=== PATIENT | male | born 1945 | race Caucasian/White ===

== ENCOUNTER 2020-06-10 22:56 | Observation (INO) | payer BC, MEDICARE ==
[2020-06-10] MEDS ORDERED: Sodium Chloride 0.9% 1000 ML 1,000 ML IV SCH (23:15)
--- NOTE | 2020-06-10 23:19 | ERPHSYRPT ---
- History of Present Illness Time Seen by Provider: 06/10/20 23:15 Historian: patient Exam Limitations: no limitations Physician History: Pt is a 75-year-old male who on the of this April or 5 days ago underwent repair of multiple hernias including 2 inguinal hernias right and left a ventral hernia midline and a ventral hernia to the left. He did well until Saturday when he ate some [place] food since that time he has had multiple loose stools no food for 2 days, complains of generalized abdominal pain and bloating especially in the epigastric area he has some rebound tenderness and that when he walks or rides he does note his pain increased with bumps fever sweats or chills. Timing/Duration: day(s) (3) Activities at Onset: none Quality: cramping, stabbing Abdominal Pain Onset Location: epigastric, generalized abdomen Pain Radiation: epigastric Severity of Pain-Max: moderate Severity of Pain-Current: moderate Associated Symptoms: heartburn, nausea, No vomiting Previous symptoms: no prior history Allergies/Adverse Reactions: No Known Drug Allergies Allergy (Verified 06/10/20 23:02) Hx Tetanus, Diphtheria Vaccination/Date Given: No (PT UNSURE) - Review of Systems Constitutional: No Fever, No Chills Eyes: No Symptoms Ears, Nose, & Throat: No Symptoms Respiratory: No Cough, No Dyspnea Cardiac: No Chest Pain, No Edema, No Syncope Abdominal/Gastrointestinal: Abdominal Pain, Nausea, Diarrhea, Appetite Changes, No Vomiting Genitourinary Symptoms: No Dysuria Musculoskeletal: No Back Pain, No Neck Pain Skin: No Rash Neurological: No Dizziness, No Focal Weakness, No Sensory Changes Psychological: No Symptoms Endocrine: No Symptoms All Other Systems: Reviewed and Negative - Past Medical History Pertinent Past Medical History: Yes Neurological History: No Pertinent History ENT History: No Pertinent History Cardiac History: Myocardial Infarction ([place]) Respiratory History: No Pertinent History Endocrine Medical History: No Pertinent History Musculoskeletal History: No Pertinent History GI Medical History: No Pertinent History History: No Pertinent History Psycho-Social History: No Pertinent History Male Reproductive Disorders: No Pertinent History - Past Surgical History Past Surgical History: Yes Neuro Surgical History: No Pertinent History Cardiac: Cardiac Stent, Pacemaker Respiratory: No Pertinent History Gastrointestinal: Cholecystectomy Genitourinary: No Pertinent History Musculoskeletal: Orthopedic Surgery Male Surgical History: No Pertinent History Other Surgical History: RIGHT INDEX FINGER SURGERY - Social History Smoking Status: Never smoker Exposure to second hand smoke: No Drug Use: none Patient Lives Alone: No - Nursing Vital Signs Nursing Vital Signs: Initial Vital Signs Temperature 97.7 F 06/10/20 23:11 Pulse Rate 67 06/10/20 23:11 Respiratory Rate 22 06/10/20 23:11 Blood Pressure 170/88 06/10/20 23:11 O2 Sat by Pulse Oximetry 96 06/10/20 23:11 Pain Scale Pain Intensity 8 - Physical Exam General Appearance: mild distress, alert Eye Exam: PERRL/EOMI, eyes nml inspection Ears, Nose, Throat Exam: normal ENT inspection, pharynx normal, moist mucous membranes Neck Exam: normal inspection, non-tender, supple, full range of motion Respiratory Exam: normal breath sounds, lungs clear, No respiratory distress Cardiovascular Exam: regular rate/rhythm, normal heart sounds Gastrointestinal/Abdomen Exam: soft, tenderness, distention, guarding, rebound, No normal bowel sounds (Sounds are high-pitched and rare), No mass Back Exam: normal inspection, normal range of motion, No CVA tenderness, No vertebral tenderness Extremity Exam: normal inspection, normal range of motion, pelvis stable Neurologic Exam: alert, oriented x 3, cooperative, normal mood/affect, nml cerebellar function, sensation nml, No motor deficits Skin Exam: normal color, warm, dry Lymphatic Exam: No adenopathy SpO2 Interpretation: normal O2 Delivery: Room Air - Course Nursing assessment & vital signs reviewed: Yes EKG Interpreted by Me: RATE (61), Other (Atrial paced complexes and left anterior fascicular block) - Radiology Exams Chest X-ray Interpretation: Interpreted by me, No Pneumonia - CT Exams Abdomen/Pelvis CT Interpretation: Tele-radiologist Report Ordered Tests: Active Orders 24 hr Category Date Time Status EKG-ER Only STAT Care 06/10/20 23:11 Active IV Insertion STAT Care 06/10/20 23:11 Active ABDOMEN AND PELVIS W/0 CONTRAS [CT] Stat Exams 06/10/20 23:11 Taken CHEST 1 VIEW (PORTABLE) Stat Exams 06/10/20 23:11 Taken AMYLASE Stat Lab 06/10/20 23:10 Completed CBC W DIFF Stat Lab 06/10/20 23:10 Completed CMP Stat Lab 06/10/20 23:10 Completed CULTURE,URINE Stat Lab 06/10/20 23:10 Received LIPASE Stat Lab 06/10/20 23:10 Completed Lactic Acid Stat Lab 06/10/20 23:10 Completed PROTIME WITH INR Stat Lab 06/10/20 23:10 Completed TROPONIN Q3H Lab 06/10/20 23:10 Completed TROPONIN Q3H Lab 06/11/20 02:15 Ordered TROPONIN Q3H Lab 06/11/20 05:15 Ordered TROPONIN Q3H Lab 06/11/20 08:15 Ordered TROPONIN Q3H Lab 06/11/20 11:15 Ordered UA W/RFX UR CULTURE Stat Lab 06/10/20 23:10 Completed Medication Summary Generic Name Dose Route Start Last Admin Trade Name Freq PRN Reason Stop Dose Admin Sodium Chloride 1,000 mls @ 100 mls/hr 06/10/20 23:15 06/10/20 23:35 Sodium Chloride 0.9% 1000 Ml IV 07/10/20 23:14 100 mls/hr .Q10H ROMEO Administration Lab/Rad Data: Laboratory Result Diagrams 06/10/20 23:10 06/10/20 23:10 Laboratory Results 06/10/20 06/10/20 06/10/20 Range/Units 23:10 23:10 23:10 WBC (4.0-10.5) K/mm3 RBC (4.1-5.6) M/mm3 Hgb (12.5-18.0) gm/dl Hct (42-50) % MCV (78-100) fl MCH (26-32) pg MCHC (32-36) g/dl RDW (11.5-14.0) % Plt Count (150-450) K/mm3 MPV (7.5-11.0) fl Gran % (36.0-66.0) % Eos # (Auto) (0-0.5) Absolute Lymphs (auto) (1.0-4.6) Absolute Monos (auto) (0.0-1.3) Lymphocytes % (24.0-44.0) % Monocytes % (0.0-12.0) % Eosinophils % (0.00-5.0) % Basophils % (0.0-0.4) % Absolute Granulocytes (1.4-6.9) Basophils # (0-0.4) PT 17.2 H (8.83-12.87) SECONDS INR 1.52 (0.8-3.0) Sodium 135 L (137-145) mmol/L Potassium 4.7 (3.5-5.1) mmol/L Chloride 96 L (98-107) mmol/L Carbon Dioxide 29 (22-30) mmol/L Anion Gap 14.0 (5-15) MEQ/L BUN 15 (9-20) mg/dL Creatinine 0.92 (0.66-1.25) mg/dL Estimated GFR > 60.0 ML/MIN Glucose 101 (74-106) mg/dL Lactic Acid (0.4-2.0) Calcium 9.5 (8.4-10.2) mg/dL Total Bilirubin 0.90 (0.2-1.3) mg/dL AST 49 (17-59) U/L ALT 29 (0-50) U/L Alkaline Phosphatase 74 (38-126) U/L Troponin I < 0.012 (0.000-0.034) ng/mL Serum Total Protein 8.2 (6.3-8.2) g/dL Albumin 4.5 (3.5-5.0) g/dL Amylase 35 (30-110) U/L Lipase 33 (23-300) U/L Urine Color (YELLOW) Urine Appearance (CLEAR) Urine pH (5-6) Ur Specific [place] (1.005-1.025) Urine Protein (Negative) Urine Ketones (NEGATIVE) Urine Blood (0-5) Ej/ul Urine Nitrite (NEGATIVE) Urine Bilirubin (NEGATIVE) Urine Urobilinogen (0-1) mg/dL Ur Leukocyte Esterase (NEGATIVE) Urine WBC (Auto) (0-5) /HPF Urine RBC (Auto) (0-2) /HPF U Epithel Cells (Auto) (FEW) /HPF Urine Bacteria (Auto) (NEGATIVE) /HPF Calcium Oxalate Crystal (NEGATIVE) /HPF Urine Mucus (Auto) (NEGATIVE) /HPF Urine Culture Reflexed (NO) Urine Glucose (NEGATIVE) mg/dL 06/10/20 06/10/20 06/10/20 Range/Units 23:10 23:10 23:10 WBC 13.2 H (4.0-10.5) K/mm3 RBC 5.05 (4.1-5.6) M/mm3 Hgb 16.9 (12.5-18.0) gm/dl Hct 51.7 H (42-50) % MCV 102.4 H (78-100) fl MCH 33.5 H (26-32) pg MCHC 32.7 (32-36) g/dl RDW 14.7 H (11.5-14.0) % Plt Count 232 (150-450) K/mm3 MPV 9.5 (7.5-11.0) fl Gran % 70.7 H (36.0-66.0) % Eos # (Auto) 0.32 (0-0.5) Absolute Lymphs (auto) 2.12 (1.0-4.6) Absolute Monos (auto) 1.39 H (0.0-1.3) Lymphocytes % 16.1 L (24.0-44.0) % Monocytes % 10.6 (0.0-12.0) % Eosinophils % 2.4 (0.00-5.0) % Basophils % 0.2 (0.0-0.4) % Absolute Granulocytes 9.32 H (1.4-6.9) Basophils # 0.02 (0-0.4) PT (8.83-12.87) SECONDS INR (0.8-3.0) Sodium (137-145) mmol/L Potassium (3.5-5.1) mmol/L Chloride (98-107) mmol/L Carbon Dioxide (22-30) mmol/L Anion Gap (5-15) MEQ/L BUN (9-20) mg/dL Creatinine (0.66-1.25) mg/dL Estimated GFR ML/MIN Glucose (74-106) mg/dL Lactic Acid 1.4 (0.4-2.0) Calcium (8.4-10.2) mg/dL Total Bilirubin (0.2-1.3) mg/dL AST (17-59) U/L ALT (0-50) U/L Alkaline Phosphatase (38-126) U/L Troponin I (0.000-0.034) ng/mL Serum Total Protein (6.3-8.2) g/dL Albumin (3.5-5.0) g/dL Amylase (30-110) U/L Lipase (23-300) U/L Urine Color BETO (YELLOW) Urine Appearance SLIGHTLY CLOUDY (CLEAR) Urine pH 5.0 (5-6) Ur Specific [place] 1.027 (1.005-1.025) Urine Protein 30 (Negative) Urine Ketones NEGATIVE (NEGATIVE) Urine Blood SMALL (0-5) Ej/ul Urine Nitrite NEGATIVE (NEGATIVE) Urine Bilirubin NEGATIVE (NEGATIVE) Urine Urobilinogen NEGATIVE (0-1) mg/dL Ur Leukocyte Esterase NEGATIVE (NEGATIVE) Urine WBC (Auto) 6-10 (0-5) /HPF Urine RBC (Auto) 0-2 (0-2) /HPF U Epithel Cells (Auto) NONE (FEW) /HPF Urine Bacteria (Auto) RARE (NEGATIVE) /HPF Calcium Oxalate Crystal 26-50 (NEGATIVE) /HPF Urine Mucus (Auto) MANY (NEGATIVE) /HPF Urine Culture Reflexed YES (NO) Urine Glucose NEGATIVE (NEGATIVE) mg/dL - Progress Progress: unchanged Discussed with : Mick Majano Will see patient in: hospital (observation) - Departure Departure Disposition: Observation Clinical Impression: Partial small bowel obstruction Condition: Stable Critical Care Time: No Referrals: MARISA SEYMOUR MD [Primary Care Provider] -
[2020-06-10 23:39] LABS: Absolute Neutrophil Ct (ANC) 9.32 (1.4-6.9); BASOPHIL % 0.2 % (0.0-0.4); Basophil (Absolute #) 0.02 (0-0.4); Eosinophil % 2.4 % (0.00-5.0); Eosinophil (Absolute #) 0.32 (0-0.5); Hematocrit 51.7 % (42-50); Hemoglobin 16.9 gm/dl (12.5-18.0); Lymphocyte (Absolute #) 2.12 (1.0-4.6); Lymphocytes % 16.1 % (24.0-44.0); Mean Cell Volume 102.4 fl (78-100); Mean Corpuscular Hemoglobin 33.5 pg (26-32); Mean Corpuscular Hgb Concent. 32.7 g/dl (32-36); Mean Platelet Volume 9.5 fl (7.5-11.0); Monocyte (Absolute #) 1.39 (0.0-1.3); Monocytes % 10.6 % (0.0-12.0); Neutrophil % 70.7 % (36.0-66.0); Platelet Count 232 K/mm3 (150-450); Red Blood Count 5.05 M/mm3 (4.1-5.6); Red Cell Distribution Width 14.7 % (11.5-14.0); White Blood Count 13.2 K/mm3 (4.0-10.5)
[2020-06-10 23:41] LABS: Appearance SLIGHTLY CLOUDY (CLEAR); Bilirubin NEGATIVE (NEGATIVE); Blood SMALL Ery/ul (0-5); Calcium Oxalate Crystals 26-50 /HPF (NEGATIVE); Glucose NEGATIVE (NEGATIVE); INR 1.52 (0.8-3.0); Ketones NEGATIVE (NEGATIVE); Leukocyte Esterase NEGATIVE (NEGATIVE); Mucus MANY /HPF (NEGATIVE); Nitrite NEGATIVE (NEGATIVE); PROTIME 17.2 SECONDS (8.83-12.87); Protein,Urine Dip 30 (Negative); RBC 0-2 /HPF (0-2); Specific Gravity 1.027 (1.005-1.025); Urobilinogen NEGATIVE mg/dL (0-1)
[2020-06-10 23:42] LABS: Bacteria RARE /HPF (NEGATIVE)
[2020-06-10 23:46] LABS: ALBUMIN 4.5 g/dL (3.5-5.0); ALKALINE PHOSPHATASE 74 U/L (38-126); AMYLASE 35 U/L (30-110); BLOOD UREA NITROGEN 15 mg/dL (9-20); CHLORIDE 96 mmol/L (98-107); Calcium 9.5 mg/dL (8.4-10.2); Carbon Dioxide 29 mmol/L (22-30); Creatinine 1 0.92 mg/dL (0.66-1.25); EST GLOMERULAR FILTRATION RATE > 60.0 ML/MIN; Glucose 101 mg/dL (74-106); LIPASE 33 U/L (23-300); Potassium 4.7 mmol/L (3.5-5.1); SGOT/AST 49 U/L (17-59); SGPT/ALT 29 U/L (0-50); SODIUM 135 mmol/L (137-145); Total Protein 8.2 g/dL (6.3-8.2)
[2020-06-11] MEDS ORDERED: Zofran 4 MG/2 ML VIAL IV PRN (01:08)
[2020-06-11] MEDS: SUBLIMAZE 100 MCG/2 ML IV PRN ×3 (01:26→10:54)
[2020-06-11] MEDS: Sodium Chloride 0.9% 1000 ML 1,000 ML IV SCH ×3 (02:00→22:00)
[2020-06-11 02:54] LABS: INFLUENZA A NEGATIVE (NEGATIVE); INFLUENZA B NEGATIVE (NEGATIVE); RESPIRATORY SYNCTIAL VIRUS NEGATIVE (Negative)
[2020-06-11] MEDS ORDERED: Zosyn 3.375 GM Vial IV ONE (06:00)
[2020-06-11] MEDS ORDERED: Sodium Chloride 0.9% 100 ML IVPB 100 ML IV ONE (06:01)
[2020-06-11] MEDS: Zosyn 3.375 GM Vial 3.375 GM in Sodium Chloride 100ML MINI-BAG PLUS 100 ML IV SCH ×4 (06:12→23:12)
[2020-06-11 07:07] LABS: Absolute Neutrophil Ct (ANC) 7.07 (1.4-6.9); BASOPHIL % 0.1 % (0.0-0.4); Basophil (Absolute #) 0.01 (0-0.4); Eosinophil % 2.4 % (0.00-5.0); Eosinophil (Absolute #) 0.25 (0-0.5); Hematocrit 45.9 % (42-50); Hemoglobin 14.7 gm/dl (12.5-18.0); Lymphocyte (Absolute #) 1.78 (1.0-4.6); Lymphocytes % 17.3 % (24.0-44.0); Mean Cell Volume 103.1 fl (78-100); Mean Platelet Volume 9.5 fl (7.5-11.0); Monocyte (Absolute #) 1.19 (0.0-1.3); Monocytes % 11.6 % (0.0-12.0); Neutrophil % 68.6 % (36.0-66.0); Platelet Count 223 K/mm3 (150-450); Red Blood Count 4.45 M/mm3 (4.1-5.6); Red Cell Distribution Width 14.5 % (11.5-14.0); White Blood Count 10.3 K/mm3 (4.0-10.5)
[2020-06-11 07:15] LABS: ALBUMIN 3.6 g/dL (3.5-5.0); ALKALINE PHOSPHATASE 77 U/L (38-126); ANION GAP 12.5 MEQ/L (5-15); BLOOD UREA NITROGEN 13 mg/dL (9-20); CHLORIDE 102 mmol/L (98-107); Calcium 8.5 mg/dL (8.4-10.2); Carbon Dioxide 27 mmol/L (22-30); Creatinine 1 0.87 mg/dL (0.66-1.25); EST GLOMERULAR FILTRATION RATE > 60.0 ML/MIN; Glucose 97 mg/dL (74-106); SGOT/AST 24 U/L (17-59); SGPT/ALT 21 U/L (0-50); SODIUM 138 mmol/L (137-145); Total Protein 6.4 g/dL (6.3-8.2)
--- NOTE | 2020-06-11 08:22 | XRAY ---
Indication: Abdominal pain and bloating. Multiple contiguous axial images obtained through the abdomen and pelvis without contrast. Comparison: March 28, 2020. Lung bases again demonstrates bibasilar fibrosis/scarring and tiny left lower lobe calcified granuloma. No infiltrate or effusion. Heart is not enlarged. Stable moderate-sized hiatal hernia. Noncontrasted stomach unremarkable. There is now abnormal fluid distended small bowel loops up to 3.8 cm in diameter with fluid leveling up to the level of the pelvic inlet favoring distal small bowel obstruction. Distal ileum and colon were normal in caliber. Normal appendix. No free fluid/air. Again minimal sigmoid diverticulosis and previous cholecystectomy. Remaining liver, pancreas, spleen, adrenal glands, kidneys, ureters, and bladder are unremarkable for noncontrast exam. Again moderate scattered aortoiliac calcifications without AAA. Osseous structures intact again with mild/moderate multilevel degenerative spondylosis. Stable moderate fatty left inguinal hernia. Interval right inguinal hernia repair. Impression: 1. New CT findings as detailed favoring partial distal small bowel obstruction. 2. Again incidental hiatal hernia, sigmoid diverticulosis, fatty left inguinal hernia, and chronic bony findings. Comment: Preliminary interpretation was made by [facility]. No critical discrepancy.
--- NOTE | 2020-06-11 08:24 | XRAY ---
Indication: Abdominal pain and bloating. Comparison: June 19, 2013. Portable chest demonstrates new minimal bibasilar subsegmental atelectasis/scarring. Remaining lungs are clear. Heart is not enlarged with stable left dual-lead pacemaker and coronary stent graft. Bony thorax intact with mild degenerative changes. Impression: Nonacute chest with chronic features.
--- NOTE | 2020-06-11 08:30 | XRAY ---
Indication: Abdomen pain and bloating. Small bowel obstruction. Comparison: None KUB demonstrates abnormal air distended small bowel loops consistent with CT proven partial small bowel obstruction. Cholecystectomy clips. Query incompletely visualized NG tube coiled inferior chest. Osseous structures intact with mild osteopenia and degenerative changes.
[2020-06-11 09:08] LABS: 027 TOX PROD PRESUMPTIVE NEGATIVE (NEGATIVE); TOXIGENIC C. DIFF ORG NEGATIVE (NEGATIVE)
[2020-06-11 10:35] LABS: Adenovirus F 40/41 NEGATIVE (NEGATIVE); Astrovirus NEGATIVE (NEGATIVE); C. Difficile Organism NEGATIVE (NEGATIVE); Campylobacter NEGATIVE (NEGATIVE); Cryptosporidium NEGATIVE (NEGATIVE); Cyclospora cayentanensis NEGATIVE (NEGATIVE); Entamoeaba histolytica NEGATIVE (NEGATIVE); Enteroaggregative E.coli NEGATIVE (NEGATIVE); Enteropathogenic E.coli NEGATIVE (NEGATIVE); Enterotoxigenic E.coli NEGATIVE (NEGATIVE); Giardia lamblia NEGATIVE (NEGATIVE); Norovirus GI/GII POSITIVE (NEGATIVE); Plesiomonas shigelloides NEGATIVE (NEGATIVE); Rotavirus A NEGATIVE (NEGATIVE); Salmonella NEGATIVE (NEGATIVE); Sapovirus NEGATIVE (NEGATIVE); Shiga-like toxin prod.E.coli NEGATIVE (NEGATIVE); Vibrio NEGATIVE (NEGATIVE); Vibrio cholerae NEGATIVE (NEGATIVE); Yersinia enterocolitica NEGATIVE (NEGATIVE)
--- NOTE | 2020-06-11 10:43 | PCM.HP ---
History of Present Illness - Chief Complaint Chief Complaint: partial bowel obstruction History of Present Illness: is a 75 year old male. Medications & Allergies Home Medications: Home Medication List Amiodarone HCl [Pacerone] 200 mg PO UD 06/11/20 [History Confirmed 06/11/20] Apixaban [Eliquis] 5 mg PO BID 06/11/20 [History Confirmed 06/11/20] Atenolol 50 mg [Tenormin 50 mg] 50 mg PO HS 06/11/20 [History Confirmed 06/11/20] Evolocumab [Repatha Syringe] 140 mg SQ UD 06/11/20 [History Confirmed 06/11/20] Hydrocodone/Acetaminophen [Hydrocodone-Acetamin 5-325 mg ] 1 tab PO Q4HPRN PRN MDD 6 06/11/20 [History Confirmed 06/11/20] Levothyroxine Sodium 50 Mcg [Synthroid 50 Mcg] 50 mcg PO DAILY 06/11/20 [History Confirmed 06/11/20] Sildenafil Citrate 100 mg PO DAILY 06/11/20 [History Confirmed 06/11/20] Simethicone [Gas-X] 125 mg PO TID PRN 06/11/20 [History Confirmed 06/11/20] Simvastatin 20Mg [Zocor 20Mg] 20 mg PO DAILY 06/11/20 [History Confirmed 06/11/20] Allergies/Adverse Reactions: Allergies Allergy/AdvReac Type Severity Reaction Status Date / Time No Known Drug Allergies Allergy Verified 06/10/20 23:02 - Past Medical History Past Medical History: Yes Neurological History: No Pertinent History ENT History: No Pertinent History Cardiac History: Myocardial Infarction (NE) Respiratory History: No Pertinent History Endocrine Medical History: No Pertinent History Musculoskelatal History: No Pertinent History GI Medical History: No Pertinent History History: No Pertinent History Pyscho-Social History: No Pertinent History Male Reproductive Disorders: No Pertinent History - Past Surgical History Past Surgical History: Yes Neuro Surgical History: No Pertinent History Cardiac History: Cardiac Stent, Pacemaker Respiratory Surgery: No Pertinent History GI Surgical History: Cholecystectomy Genitourinary Surgical Hx: No Pertinent History Musculskeletal Surgical Hx: Orthopedic Surgery Male Surgical History: No Pertinent History Other Surgical History: RIGHT INDEX FINGER SURGERY - Social History Smoking Status: Never smoker Exposure to second hand smoke: No Alcohol: None Drug Use: none - Physical Exam Vital Signs: Vital Signs - 24 hr Temp Pulse Resp BP Pulse Ox 06/11/20 07:43 98.0 F 60 16 109/53 94 L 06/11/20 03:37 98.2 F 62 17 147/65 95 06/11/20 03:10 60 129/66 95 06/11/20 02:32 60 142/76 95 06/11/20 01:13 60 150/74 95 06/11/20 00:25 58 L 127/79 97 06/10/20 23:11 97.7 F 67 22 170/88 96 Oxygen-Last 24 hours Oxygen Flowrate (L/min)-RT 2 Results - Labs Lab/Micro Results: Lab Results-Last 24 Hours 06/10/20 06/10/20 06/10/20 Range/Units 23:10 23:10 23:10 WBC 13.2 H (4.0-10.5) K/mm3 RBC 5.05 (4.1-5.6) M/mm3 Hgb 16.9 (12.5-18.0) gm/dl Hct 51.7 H (42-50) % MCV 102.4 H (78-100) fl MCH 33.5 H (26-32) pg MCHC 32.7 (32-36) g/dl RDW 14.7 H (11.5-14.0) % Plt Count 232 (150-450) K/mm3 MPV 9.5 (7.5-11.0) fl Gran % 70.7 H (36.0-66.0) % Eos # (Auto) 0.32 (0-0.5) Absolute Lymphs (auto) 2.12 (1.0-4.6) Absolute Monos (auto) 1.39 H (0.0-1.3) Lymphocytes % 16.1 L (24.0-44.0) % Monocytes % 10.6 (0.0-12.0) % Eosinophils % 2.4 (0.00-5.0) % Basophils % 0.2 (0.0-0.4) % Absolute Granulocytes 9.32 H (1.4-6.9) Basophils # 0.02 (0-0.4) PT (8.83-12.87) SECONDS INR (0.8-3.0) Sodium (137-145) mmol/L Potassium (3.5-5.1) mmol/L Chloride (98-107) mmol/L Carbon Dioxide (22-30) mmol/L Anion Gap (5-15) MEQ/L BUN (9-20) mg/dL Creatinine (0.66-1.25) mg/dL Estimated GFR ML/MIN Glucose (74-106) mg/dL Lactic Acid 1.4 (0.4-2.0) Calcium (8.4-10.2) mg/dL Total Bilirubin (0.2-1.3) mg/dL AST (17-59) U/L ALT (0-50) U/L Alkaline Phosphatase (38-126) U/L Troponin I (0.000-0.034) ng/mL Serum Total Protein (6.3-8.2) g/dL Albumin (3.5-5.0) g/dL Amylase (30-110) U/L Lipase (23-300) U/L Urine Color BETO (YELLOW) Urine Appearance SLIGHTLY CLOUDY (CLEAR) Urine pH 5.0 (5-6) Ur Specific [place] 1.027 (1.005-1.025) Urine Protein 30 (Negative) Urine Ketones NEGATIVE (NEGATIVE) Urine Blood SMALL (0-5) Ej/ul Urine Nitrite NEGATIVE (NEGATIVE) Urine Bilirubin NEGATIVE (NEGATIVE) Urine Urobilinogen NEGATIVE (0-1) mg/dL Ur Leukocyte Esterase NEGATIVE (NEGATIVE) Urine WBC (Auto) 6-10 (0-5) /HPF Urine RBC (Auto) 0-2 (0-2) /HPF U Epithel Cells (Auto) NONE (FEW) /HPF Urine Bacteria (Auto) RARE (NEGATIVE) /HPF Calcium Oxalate Crystal 26-50 (NEGATIVE) /HPF Urine Mucus (Auto) MANY (NEGATIVE) /HPF Urine Culture Reflexed YES (NO) Urine Glucose NEGATIVE (NEGATIVE) mg/dL Stl C. cayetanensis PCR (NEGATIVE) Stl Adenov F 40/41 PCR (NEGATIVE) Stool Astrovirus (PCR) (NEGATIVE) Stool Cryptosporidium PCR (NEGATIVE) Stool EPEC (PCR) (NEGATIVE) Stool EAEC (PCR) (NEGATIVE) Stl E. histolytica PCR (NEGATIVE) Stl P. shigelloides PCR (NEGATIVE) Stool Sapovirus (PCR) (NEGATIVE) St Y.enterocolitica PCR (NEGATIVE) Stool Vibrio (PCR) (NEGATIVE) Stl Vibrio cholerae PCR (NEGATIVE) Stl Norovirus GI/GII PCR (NEGATIVE) Campylobacter (PCR) (NEGATIVE) C. difficile Screen (NEGATIVE) C.difficile 027-NAP1-B1 (NEGATIVE) C. difficile (PCR) (NEGATIVE) Enterotoxigenic E. coli (NEGATIVE) E.coli Shiga Toxins (NEGATIVE) Giardia lamblia (NEGATIVE) Influenza Type A Ag (NEGATIVE) Influenza Type B Ag (NEGATIVE) RSV (PCR) (Negative) Rotavirus A (PCR) (NEGATIVE) Salmonella (PCR) (NEGATIVE) SARS-CoV-2 (PCR) (NEGATIVE) Shigella (PCR) (NEGATIVE) 06/10/20 06/10/20 06/10/20 Range/Units 23:10 23:10 23:10 WBC (4.0-10.5) K/mm3 RBC (4.1-5.6) M/mm3 Hgb (12.5-18.0) gm/dl Hct (42-50) % MCV (78-100) fl MCH (26-32) pg MCHC (32-36) g/dl RDW (11.5-14.0) % Plt Count (150-450) K/mm3 MPV (7.5-11.0) fl Gran % (36.0-66.0) % Eos # (Auto) (0-0.5) Absolute Lymphs (auto) (1.0-4.6) Absolute Monos (auto) (0.0-1.3) Lymphocytes % (24.0-44.0) % Monocytes % (0.0-12.0) % Eosinophils % (0.00-5.0) % Basophils % (0.0-0.4) % Absolute Granulocytes (1.4-6.9) Basophils # (0-0.4) PT 17.2 H (8.83-12.87) SECONDS INR 1.52 (0.8-3.0) Sodium 135 L (137-145) mmol/L Potassium 4.7 (3.5-5.1) mmol/L Chloride 96 L (98-107) mmol/L Carbon Dioxide 29 (22-30) mmol/L Anion Gap 14.0 (5-15) MEQ/L BUN 15 (9-20) mg/dL Creatinine 0.92 (0.66-1.25) mg/dL Estimated GFR > 60.0 ML/MIN Glucose 101 (74-106) mg/dL Lactic Acid (0.4-2.0) Calcium 9.5 (8.4-10.2) mg/dL Total Bilirubin 0.90 (0.2-1.3) mg/dL AST 49 (17-59) U/L ALT 29 (0-50) U/L Alkaline Phosphatase 74 (38-126) U/L Troponin I < 0.012 (0.000-0.034) ng/mL Serum Total Protein 8.2 (6.3-8.2) g/dL Albumin 4.5 (3.5-5.0) g/dL Amylase 35 (30-110) U/L Lipase 33 (23-300) U/L Urine Color (YELLOW) Urine Appearance (CLEAR) Urine pH (5-6) Ur Specific [place] (1.005-1.025) Urine Protein (Negative) Urine Ketones (NEGATIVE) Urine Blood (0-5) Ej/ul Urine Nitrite (NEGATIVE) Urine Bilirubin (NEGATIVE) Urine Urobilinogen (0-1) mg/dL Ur Leukocyte Esterase (NEGATIVE) Urine WBC (Auto) (0-5) /HPF Urine RBC (Auto) (0-2) /HPF U Epithel Cells (Auto) (FEW) /HPF Urine Bacteria (Auto) (NEGATIVE) /HPF Calcium Oxalate Crystal (NEGATIVE) /HPF Urine Mucus (Auto) (NEGATIVE) /HPF Urine Culture Reflexed (NO) Urine Glucose (NEGATIVE) mg/dL Stl C. cayetanensis PCR (NEGATIVE) Stl Adenov F 40/41 PCR (NEGATIVE) Stool Astrovirus (PCR) (NEGATIVE) Stool Cryptosporidium PCR (NEGATIVE) Stool EPEC (PCR) (NEGATIVE) Stool EAEC (PCR) (NEGATIVE) Stl E. histolytica PCR (NEGATIVE) Stl P. shigelloides PCR (NEGATIVE) Stool Sapovirus (PCR) (NEGATIVE) St Y.enterocolitica PCR (NEGATIVE) Stool Vibrio (PCR) (NEGATIVE) Stl Vibrio cholerae PCR (NEGATIVE) Stl Norovirus GI/GII PCR (NEGATIVE) Campylobacter (PCR) (NEGATIVE) C. difficile Screen (NEGATIVE) C.difficile 027-NAP1-B1 (NEGATIVE) C. difficile (PCR) (NEGATIVE) Enterotoxigenic E. coli (NEGATIVE) E.coli Shiga Toxins (NEGATIVE) Giardia lamblia (NEGATIVE) Influenza Type A Ag (NEGATIVE) Influenza Type B Ag (NEGATIVE) RSV (PCR) (Negative) Rotavirus A (PCR) (NEGATIVE) Salmonella (PCR) (NEGATIVE) SARS-CoV-2 (PCR) (NEGATIVE) Shigella (PCR) (NEGATIVE) 06/11/20 06/11/20 06/11/20 Range/Units 01:21 02:00 06:07 WBC 10.3 (4.0-10.5) K/mm3 RBC 4.45 (4.1-5.6) M/mm3 Hgb 14.7 (12.5-18.0) gm/dl Hct 45.9 (42-50) % MCV 103.1 H (78-100) fl MCH 33.0 H (26-32) pg MCHC 32.0 (32-36) g/dl RDW 14.5 H (11.5-14.0) % Plt Count 223 (150-450) K/mm3 MPV 9.5 (7.5-11.0) fl Gran % 68.6 H (36.0-66.0) % Eos # (Auto) 0.25 (0-0.5) Absolute Lymphs (auto) 1.78 (1.0-4.6) Absolute Monos (auto) 1.19 (0.0-1.3) Lymphocytes % 17.3 L (24.0-44.0) % Monocytes % 11.6 (0.0-12.0) % Eosinophils % 2.4 (0.00-5.0) % Basophils % 0.1 (0.0-0.4) % Absolute Granulocytes 7.07 H (1.4-6.9) Basophils # 0.01 (0-0.4) PT (8.83-12.87) SECONDS INR (0.8-3.0) Sodium (137-145) mmol/L Potassium (3.5-5.1) mmol/L Chloride (98-107) mmol/L Carbon Dioxide (22-30) mmol/L Anion Gap (5-15) MEQ/L BUN (9-20) mg/dL Creatinine (0.66-1.25) mg/dL Estimated GFR ML/MIN Glucose (74-106) mg/dL Lactic Acid (0.4-2.0) Calcium (8.4-10.2) mg/dL Total Bilirubin (0.2-1.3) mg/dL AST (17-59) U/L ALT (0-50) U/L Alkaline Phosphatase (38-126) U/L Troponin I < 0.012 (0.000-0.034) ng/mL Serum Total Protein (6.3-8.2) g/dL Albumin (3.5-5.0) g/dL Amylase (30-110) U/L Lipase (23-300) U/L Urine Color (YELLOW) Urine Appearance (CLEAR) Urine pH (5-6) Ur Specific [place] (1.005-1.025) Urine Protein (Negative) Urine Ketones (NEGATIVE) Urine Blood (0-5) Ej/ul Urine Nitrite (NEGATIVE) Urine Bilirubin (NEGATIVE) Urine Urobilinogen (0-1) mg/dL Ur Leukocyte Esterase (NEGATIVE) Urine WBC (Auto) (0-5) /HPF Urine RBC (Auto) (0-2) /HPF U Epithel Cells (Auto) (FEW) /HPF Urine Bacteria (Auto) (NEGATIVE) /HPF Calcium Oxalate Crystal (NEGATIVE) /HPF Urine Mucus (Auto) (NEGATIVE) /HPF Urine Culture Reflexed (NO) Urine Glucose (NEGATIVE) mg/dL Stl C. cayetanensis PCR (NEGATIVE) Stl Adenov F 40/41 PCR (NEGATIVE) Stool Astrovirus (PCR) (NEGATIVE) Stool Cryptosporidium PCR (NEGATIVE) Stool EPEC (PCR) (NEGATIVE) Stool EAEC (PCR) (NEGATIVE) Stl E. histolytica PCR (NEGATIVE) Stl P. shigelloides PCR (NEGATIVE) Stool Sapovirus (PCR) (NEGATIVE) St Y.enterocolitica PCR (NEGATIVE) Stool Vibrio (PCR) (NEGATIVE) Stl Vibrio cholerae PCR (NEGATIVE) Stl Norovirus GI/GII PCR (NEGATIVE) Campylobacter (PCR) (NEGATIVE) C. difficile Screen (NEGATIVE) C.difficile 027-NAP1-B1 (NEGATIVE) C. difficile (PCR) (NEGATIVE) Enterotoxigenic E. coli (NEGATIVE) E.coli Shiga Toxins (NEGATIVE) Giardia lamblia (NEGATIVE) Influenza Type A Ag NEGATIVE (NEGATIVE) Influenza Type B Ag NEGATIVE (NEGATIVE) RSV (PCR) NEGATIVE (Negative) Rotavirus A (PCR) (NEGATIVE) Salmonella (PCR) (NEGATIVE) SARS-CoV-2 (PCR) NEGATIVE (NEGATIVE) Shigella (PCR) (NEGATIVE) 06/11/20 06/11/20 06/11/20 Range/Units 06:07 06:34 06:40 WBC (4.0-10.5) K/mm3 RBC (4.1-5.6) M/mm3 Hgb (12.5-18.0) gm/dl Hct (42-50) % MCV (78-100) fl MCH (26-32) pg MCHC (32-36) g/dl RDW (11.5-14.0) % Plt Count (150-450) K/mm3 MPV (7.5-11.0) fl Gran % (36.0-66.0) % Eos # (Auto) (0-0.5) Absolute Lymphs (auto) (1.0-4.6) Absolute Monos (auto) (0.0-1.3) Lymphocytes % (24.0-44.0) % Monocytes % (0.0-12.0) % Eosinophils % (0.00-5.0) % Basophils % (0.0-0.4) % Absolute Granulocytes (1.4-6.9) Basophils # (0-0.4) PT (8.83-12.87) SECONDS INR (0.8-3.0) Sodium 138 (137-145) mmol/L Potassium 4.0 (3.5-5.1) mmol/L Chloride 102 (98-107) mmol/L Carbon Dioxide 27 (22-30) mmol/L Anion Gap 12.5 (5-15) MEQ/L BUN 13 (9-20) mg/dL Creatinine 0.87 (0.66-1.25) mg/dL Estimated GFR > 60.0 ML/MIN Glucose 97 (74-106) mg/dL Lactic Acid 0.9 (0.4-2.0) Calcium 8.5 (8.4-10.2) mg/dL Total Bilirubin 0.50 (0.2-1.3) mg/dL AST 24 (17-59) U/L ALT 21 (0-50) U/L Alkaline Phosphatase 77 (38-126) U/L Troponin I (0.000-0.034) ng/mL Serum Total Protein 6.4 (6.3-8.2) g/dL Albumin 3.6 (3.5-5.0) g/dL Amylase (30-110) U/L Lipase (23-300) U/L Urine Color (YELLOW) Urine Appearance (CLEAR) Urine pH (5-6) Ur Specific [place] (1.005-1.025) Urine Protein (Negative) Urine Ketones (NEGATIVE) Urine Blood (0-5) Ej/ul Urine Nitrite (NEGATIVE) Urine Bilirubin (NEGATIVE) Urine Urobilinogen (0-1) mg/dL Ur Leukocyte Esterase (NEGATIVE) Urine WBC (Auto) (0-5) /HPF Urine RBC (Auto) (0-2) /HPF U Epithel Cells (Auto) (FEW) /HPF Urine Bacteria (Auto) (NEGATIVE) /HPF Calcium Oxalate Crystal (NEGATIVE) /HPF Urine Mucus (Auto) (NEGATIVE) /HPF Urine Culture Reflexed (NO) Urine Glucose (NEGATIVE) mg/dL Stl C. cayetanensis PCR NEGATIVE (NEGATIVE) Stl Adenov F 40/41 PCR NEGATIVE (NEGATIVE) Stool Astrovirus (PCR) NEGATIVE (NEGATIVE) Stool Cryptosporidium PCR NEGATIVE (NEGATIVE) Stool EPEC (PCR) NEGATIVE (NEGATIVE) Stool EAEC (PCR) NEGATIVE (NEGATIVE) Stl E. histolytica PCR NEGATIVE (NEGATIVE) Stl P. shigelloides PCR NEGATIVE (NEGATIVE) Stool Sapovirus (PCR) NEGATIVE (NEGATIVE) St Y.enterocolitica PCR NEGATIVE (NEGATIVE) Stool Vibrio (PCR) NEGATIVE (NEGATIVE) Stl Vibrio cholerae PCR NEGATIVE (NEGATIVE) Stl Norovirus GI/GII PCR POSITIVE A (NEGATIVE) Campylobacter (PCR) NEGATIVE (NEGATIVE) C. difficile Screen NEGATIVE (NEGATIVE) C.difficile 027-NAP1-B1 PRESUMPTIVE NEGATIVE (NEGATIVE) C. difficile (PCR) NEGATIVE (NEGATIVE) Enterotoxigenic E. coli NEGATIVE (NEGATIVE) E.coli Shiga Toxins NEGATIVE (NEGATIVE) Giardia lamblia NEGATIVE (NEGATIVE) Influenza Type A Ag (NEGATIVE) Influenza Type B Ag (NEGATIVE) RSV (PCR) (Negative) Rotavirus A (PCR) NEGATIVE (NEGATIVE) Salmonella (PCR) NEGATIVE (NEGATIVE) SARS-CoV-2 (PCR) (NEGATIVE) Shigella (PCR) NEGATIVE (NEGATIVE) - Radiology Impressions Radiology Exams & Impressions: Radiology Procedures Category Date Time Status ABDOMEN AND PELVIS W/0 CONTRAS [CT] Stat Exams 06/10/20 23:11 Completed CHEST 1 VIEW (PORTABLE) Stat Exams 06/10/20 23:11 Completed KUB Routine Exams 06/11/20 08:00 Completed
[2020-06-11] MEDS ORDERED: NORCO 5/325 MG PO PRN (12:10)
[2020-06-11] MEDS ORDERED: SIMETHICONE 125 MG PO PRN (12:10)
[2020-06-11] MEDS ORDERED: Mylicon 80MG PO PRN (12:14)
[2020-06-11] MEDS ORDERED: EVOLOCUMAB 140 MG SQ SCH (12:15)
[2020-06-11] MEDS ORDERED: TENORMIN 50 MG PO SCH (12:15)
[2020-06-11] MEDS ORDERED: MEDICATION INTERVENTION MC SCH ×2 (12:30→14:30)
[2020-06-11] MEDS: Cordarone 200 MG PO SCH (14:25)
[2020-06-11] MEDS: SYNTHROID 50 MCG PO SCH (14:25)
[2020-06-11] MEDS: ZOCOR 20MG PO SCH (15:42)
[2020-06-12] MEDS: Sodium Chloride 0.9% 1000 ML 1,000 ML IV SCH ×2 (01:59→21:32)
[2020-06-12] MEDS: Zosyn 3.375 GM Vial 3.375 GM in Sodium Chloride 100ML MINI-BAG PLUS 100 ML IV SCH (05:57)
[2020-06-12 06:35] LABS: Hematocrit 41.1 % (42-50); Hemoglobin 13.7 gm/dl (12.5-18.0); Mean Cell Volume 102.2 fl (78-100); Mean Corpuscular Hemoglobin 34.1 pg (26-32); Mean Corpuscular Hgb Concent. 33.3 g/dl (32-36); Mean Platelet Volume 9.6 fl (7.5-11.0); Platelet Count 204 K/mm3 (150-450); Red Blood Count 4.02 M/mm3 (4.1-5.6); Red Cell Distribution Width 14.1 % (11.5-14.0); White Blood Count 6.7 K/mm3 (4.0-10.5)
[2020-06-12 06:46] LABS: ALBUMIN 3.2 g/dL (3.5-5.0); ALKALINE PHOSPHATASE 68 U/L (38-126); ANION GAP 11.1 MEQ/L (5-15); BLOOD UREA NITROGEN 8 mg/dL (9-20); CHLORIDE 108 mmol/L (98-107); Calcium 7.9 mg/dL (8.4-10.2); Carbon Dioxide 25 mmol/L (22-30); Creatinine 1 0.89 mg/dL (0.66-1.25); EST GLOMERULAR FILTRATION RATE > 60.0 ML/MIN; Glucose 79 mg/dL (74-106); Potassium 3.8 mmol/L (3.5-5.1); SGOT/AST 23 U/L (17-59); SGPT/ALT 18 U/L (0-50); SODIUM 140 mmol/L (137-145)
[2020-06-12] MEDS ORDERED: SILDENAFIL CITRATE 100 MG PO SCH (10:00)
[2020-06-12] MEDS: ZOCOR 20MG PO SCH (10:27)
[2020-06-12] MEDS: Zestril 5 MG PO SCH (10:27)
[2020-06-12] MEDS: ELIQUIS 2.5 MG TABLET PO SCH ×2 (10:27→21:32)
[2020-06-12] MEDS: SYNTHROID 50 MCG PO SCH (10:27)
[2020-06-12] MEDS: Cordarone 200 MG PO SCH ×2 (11:28)
[2020-06-12] MEDS: Flagyl 500 MG PO SCH ×2 (13:33→21:32)
[2020-06-12] MEDS: Cipro 500 MG PO SCH ×2 (13:33→21:34)
--- NOTE | 2020-06-12 14:07 | PCM.NOTE ---
Date and Time: 06/12/20 1331 Subjective Assessment: 75 yr old male seen and examined today. Patient reports that he feels better today. He ate jello and pudding last night and tolerated that. He had some loose stools last night but they were happening less frequently. Patient reports only mild abdominal pain but he did take norco last night. No nausea or vomiting today. Patient had no other reported concerns this am. - Review of Systems Constitutional: No Fever, No Weakness, No Weight Loss Eyes: No Symptoms Ears, Nose, & Throat: No Symptoms Respiratory: Cough (occasional), No Short Of Breath Cardiac: No Chest Pain, No Edema Abdominal/Gastrointestinal: Abdominal Pain, Diarrhea, No Nausea, No Vomiting, No Constipation Genitourinary Symptoms: No Symptoms Musculoskeletal: No Symptoms Skin: No Symptoms Neurological: No Headache Psychological: No Alcohol Abuse, No Drug Abuse, No Anxiety, No Depression Objective Exam General Appearance: no apparent distress, alert, No anxiety Neurologic Exam: alert, oriented x 3, cooperative, normal mood/affect, No depressed mood/affect Skin Exam: normal color, warm, dry, No rash Ears, Nose, Throat Exam: moist mucous membranes Neck Exam: normal inspection Respiratory Exam: normal breath sounds, lungs clear, No chest tenderness, No respiratory distress, No diminished breath sounds, No crackles/rales, No rhonchi, No wheezing Cardiovascular Exam: regular rate/rhythm, normal heart sounds, No murmur, No friction rub, No gallop, No edema Gastrointestinal/Abdomen Exam: soft, normal bowel sounds, tenderness (mild R sided), No distention, No mass, No guarding, No organomegaly OBJECTIVE DATA Vital Signs: Vital Signs - 24 hr Temp Pulse Resp BP Pulse Ox 06/12/20 11:40 98.6 F 59 L 16 135/61 92 L 06/12/20 07:24 98.0 F 60 16 163/67 96 06/12/20 04:01 97.9 F 69 15 134/58 96 06/11/20 23:55 98.1 F 60 22 131/58 96 06/11/20 20:03 98.1 F 54 L 16 134/70 96 06/11/20 16:00 98.5 F 50 L 16 161/70 97 Pain Assessment - Last Documented Pain Intensity 0 Pain Scale Used 0-10 Pain Scale Intake and Output: Intake & Output 06/10/20 06/11/20 06/12/20 06/13/20 11:59 11:59 11:59 11:59 Intake Total 0 4369 Output Total 300 Balance 0 4069 Weight 90.4 kg Lab Results: Lab Results-Last 24 Hours 06/12/20 06/12/20 Range/Units 05:48 05:48 WBC 6.7 (4.0-10.5) K/mm3 RBC 4.02 L (4.1-5.6) M/mm3 Hgb 13.7 (12.5-18.0) gm/dl Hct 41.1 L (42-50) % MCV 102.2 H (78-100) fl MCH 34.1 H (26-32) pg MCHC 33.3 (32-36) g/dl RDW 14.1 H (11.5-14.0) % Plt Count 204 (150-450) K/mm3 MPV 9.6 (7.5-11.0) fl Sodium 140 (137-145) mmol/L Potassium 3.8 (3.5-5.1) mmol/L Chloride 108 H (98-107) mmol/L Carbon Dioxide 25 (22-30) mmol/L Anion Gap 11.1 (5-15) MEQ/L BUN 8 L (9-20) mg/dL Creatinine 0.89 (0.66-1.25) mg/dL Estimated GFR > 60.0 ML/MIN Glucose 79 (74-106) mg/dL Calcium 7.9 L (8.4-10.2) mg/dL Total Bilirubin 0.60 (0.2-1.3) mg/dL AST 23 (17-59) U/L ALT 18 (0-50) U/L Alkaline Phosphatase 68 (38-126) U/L Serum Total Protein 6.0 L (6.3-8.2) g/dL Albumin 3.2 L (3.5-5.0) g/dL Radiology Exams: Radiology Procedures Category Date Time Status ABDOMEN AND PELVIS W/0 CONTRAS [CT] Stat Exams 06/10/20 23:11 Completed CHEST 1 VIEW (PORTABLE) Stat Exams 06/10/20 23:11 Completed KUB Routine Exams 06/11/20 08:00 Completed Multi-Disciplinary Progress Notes: Multi-Disciplinary Progress Notes 06/12/20 11:33 Case Management Note by Oralia Francisco DISCHARGE PLAN REVIEWED. PATIENT NORMALLY LIVES AT HOME WITH HIS , INDEPENDENT OF ALL ADLs, STILL WORKING OUTSIDE THE HOME. PATIENT HAS NO DMEs. PLAN TO RETURN HOME TO PRE EPISODIC LEVEL OF FUNCTION AND TO RETURN TO WORK. PATIENT MAY NEED A RETURN TO WORK SLIP. WILL CONTINUE TO MONITOR FOR ALL D/C NEEDS. Initialized on 06/12/20 11:33 - END OF NOTE Assessment/Plan (1) Partial small bowel obstruction Current Visit: Yes Status: Acute Assessment & Plan: Patient has had improvement of symptoms. He has not required NG tube. He has been progressing on his diet and is eating a regular diet. He still had some loose stools overnight but none this am. Patient was seen by surgery this am and it was felt that patient needed to stay one more day. Patient is being transitioned to PO antibiotics. Will get repeat labs in am. Patient has follow up with surgeon in am for his hernia surgery. Code(s): K56.600 - PARTIAL INTESTINAL OBSTRUCTION, UNSPECIFIED TO CAUSE (2) Essential hypertension Current Visit: Yes Status: Acute Assessment & Plan: Will resume home meds Code(s): I10 - ESSENTIAL (PRIMARY) HYPERTENSION (3) Hyperlipidemia Current Visit: Yes Status: Acute Assessment & Plan: Will resume home meds Code(s): E78.5 - HYPERLIPIDEMIA, UNSPECIFIED (4) Norovirus Current Visit: Yes Status: Acute Assessment & Plan: Patient had GI panel done in er that showed positive for norovirus. Patient has had some symptoms related to this virus. Imaging showed partial bowel obstruction and patient has had recent abdominal surgery. Will continue to medically manage. Code(s): A08.11 - ACUTE GASTROENTEROPATHY DUE TO NORWALK AGENT (5) Hypothyroid Current Visit: Yes Status: Acute Assessment & Plan: Will resume home meds Code(s): E03.9 - HYPOTHYROIDISM, UNSPECIFIED
[2020-06-12] MEDS ORDERED: TENORMIN 50 MG ONE (19:59)
[2020-06-12] MEDS ORDERED: ZOCOR 20MG PO SCH (22:00)
[2020-06-12] MEDS ORDERED: TENORMIN 50 MG PO SCH (22:00)
[2020-06-13] MEDS: Flagyl 500 MG PO SCH ×2 (04:39→11:46)
[2020-06-13 06:03] LABS: Absolute Neutrophil Ct (ANC) 4.22 (1.4-6.9); BASOPHIL % 0.6 % (0.0-0.4); Basophil (Absolute #) 0.04 (0-0.4); Eosinophil % 4.4 % (0.00-5.0); Eosinophil (Absolute #) 0.31 (0-0.5); Hematocrit 41.9 % (42-50); Hemoglobin 13.5 gm/dl (12.5-18.0); Lymphocytes % 25.5 % (24.0-44.0); Mean Cell Volume 102.9 fl (78-100); Mean Corpuscular Hemoglobin 33.2 pg (26-32); Mean Corpuscular Hgb Concent. 32.2 g/dl (32-36); Mean Platelet Volume 9.4 fl (7.5-11.0); Monocyte (Absolute #) 0.69 (0.0-1.3); Monocytes % 9.8 % (0.0-12.0); Neutrophil % 59.7 % (36.0-66.0); Platelet Count 231 K/mm3 (150-450); Red Blood Count 4.07 M/mm3 (4.1-5.6); Red Cell Distribution Width 13.8 % (11.5-14.0); White Blood Count 7.1 K/mm3 (4.0-10.5)
[2020-06-13 06:13] LABS: ALBUMIN 3.5 g/dL (3.5-5.0); ALKALINE PHOSPHATASE 71 U/L (38-126); ANION GAP 10.7 MEQ/L (5-15); BLOOD UREA NITROGEN 7 mg/dL (9-20); CHLORIDE 105 mmol/L (98-107); Calcium 8.4 mg/dL (8.4-10.2); Carbon Dioxide 28 mmol/L (22-30); Creatinine 1 0.85 mg/dL (0.66-1.25); EST GLOMERULAR FILTRATION RATE > 60.0 ML/MIN; Glucose 86 mg/dL (74-106); Potassium 3.7 mmol/L (3.5-5.1); SGOT/AST 27 U/L (17-59); SGPT/ALT 21 U/L (0-50); SODIUM 140 mmol/L (137-145); Total Protein 6.5 g/dL (6.3-8.2)
[2020-06-13] MEDS: SYNTHROID 50 MCG PO SCH (09:28)
[2020-06-13] MEDS: Cordarone 200 MG PO SCH (09:28)
[2020-06-13] MEDS: Zestril 5 MG PO SCH (09:28)
[2020-06-13] MEDS: ZOCOR 20MG PO SCH (09:28)
[2020-06-13] MEDS: ELIQUIS 2.5 MG TABLET PO SCH (09:29)
[2020-06-13] MEDS: Cipro 500 MG PO SCH (09:31)
[2020-06-13 11:55] VITALS: BP 155/67; PULSE 58; O2SAT 96
--- NOTE | 2020-06-13 15:39 | CONS ---
CONSULT DATE: 06/11/2020 REASON FOR CONSULT: Partial small bowel obstruction. HISTORY: The patient is 75 year-old who about a month ago had undergone laparoscopic assisted ventral hernia repair by Dr. Smith. Apparently he went to eat some [place] food on Saturday and on Saturday he started having some abdominal symptoms including some pain, nausea and some diarrhea. He presented to the emergency room because the symptoms did not get better and was then admitted for observation due to the fact that CT scan showed a partial small bowel obstruction. I was asked to see him in consultation for evaluation and management. PAST MEDICAL/SURGICAL HISTORY: His past medical history and surgical history are available in the admission history and physical. PHYSICAL EXAMINATION: He is alert and oriented. HEENT: Pupils are equal and normoreactive. NECK: Supple. COR: Regular rhythm. ABDOMEN: Soft. IMPRESSION: The patient had a bowel movement this morning which was diarrhea-type and seemed to be feeling somehow better. He was started on some Zosyn last night and will continue antibiotic today. At this point in time I do not believe that surgical intervention is needed. Probably I would imagine that this is more likely gastroenteritis or food poisoning from his [place] dinner but looks like he is clinically improving and will get him started on some food and something to drink and advance diet as tolerated. If he is clinically improved by tomorrow might be able to go home. No immediate surgical intervention is needed. I will follow with you.
== END 2020-06-13 12:40 | disposition home or self-care (01) ==
LOC: ED 22:56 → MED SURG 06-11 03:21
PROVIDERS: ADMIT Family Medicine; ATTEND Family Medicine
DX: K56.609 Unspecified intestinal obstruction, unspecified as to partial versus complete obstruction (principal); Z79.899 Other long term (current) drug therapy; I10 Essential (primary) hypertension; E78.5 Hyperlipidemia, unspecified; A08.11 Acute gastroenteropathy due to Norwalk agent; E03.9 Hypothyroidism, unspecified; Z20.828 Contact with and (suspected) exposure to other viral communicable diseases
CPT/HCPCS: 0097U; 0241U; 36000; 36415; 71045; 74018; 74176; 80053; 81001; 82150; 83605; 83690; 84484; 85025; 85027; 85610; 87077; 87086; 87186; 87493; 93005; 93268; 96374; 99285; G0378; J3010; A9270-GY

== ENCOUNTER 2020-06-20 09:13 | Day surgery (SDC) | payer BC, MEDICARE ==
[~2020-06-20 09:13] MED LIST: Lactated Ringers 1,000 ML IV SCH
--- NOTE | 2020-06-20 09:40 | HP ---
DATE OF SURGERY: 06/20/2020 HISTORY OF PRESENT ILLNESS: The patient is a 75 year-old with multiple medical problems, had a hernia repair recently. He is in need of colonoscopy. PAST MEDICAL HISTORY: Hypertension, heart disease, myocardial infarction, hyperlipidemia. PAST SURGICAL HISTORY: Hernia repair in the past. Recent repair of recurrent epigastric ventral hernia on the left lower quadrant abdominal wall ventral hernia and right inguinal hernia in the past. Cholecystectomy. Cardiac stent. Pacemaker. Right index finger surgery. MEDICATIONS: Atenolol, Eliquis, levothyroxine, lisinopril, nitroglycerin PRN, Pacerone, simethicone, Simvastatin, Sildenafil, Ventolin HFA for some mild chronic obstructive pulmonary disease. ALLERGIES: NKDA. FAMILY HISTORY: Negative in regards to this problem. SOCIAL HISTORY: Denies smoking. Denies alcohol abuse. REVIEW OF SYSTEMS: Fourteen systems reviewed. Pertinent for multiple medical problems noted above. No chest pain or palpitations. Other systems negative or noncontributory as above and per preadmission questionnaire. PHYSICAL EXAMINATION: GENERAL: No acute distress. HEENT: Sclerae nonicteric. NECK: No JVD. CHEST: Equal excursion, nonlabored breathing. CVS: Regular rate and rhythm. ABDOMEN: Soft. No peritoneal signs. EXTREMITIES: No significant edema. NEURO: Alert, oriented, moving extremities symmetrically. RECTAL: Deferred timed to endoscopy exam. PSYCH: Appropriate mood and affect. IMPRESSION: Need for follow up screening colonoscopy. I feel he is a candidate. Risks and benefits explained in detail including bleeding or infection, risk of bowel injury or perforation possibly requiring open procedure, risk of missed or nondiagnosis or incomplete exam possibly requiring barium enema, other studies or procedures, general risk of anesthesia or sedation but not limited to, consent obtained. Will proceed with outpatient follow up screening colonoscopy.
[2020-06-20] MEDS ORDERED: Lactated Ringers 1,000 ML IV ONE (09:43)
[2020-06-20] MEDS ORDERED: DIPRIVAN 200 MG/20 ML IV ONE (11:28)
[2020-06-20 12:28] VITALS: O2SAT 94
[2020-06-20 12:54] VITALS: BP 138/72; PULSE 72
--- NOTE | 2020-06-21 07:48 | OP ---
SURGERY DATE/TIME: 06/20/2020 1127 PREOPERATIVE DIAGNOSIS: Need for follow up screening colonoscopy. POSTOPERATIVE DIAGNOSES: 1) Mild diverticulosis. 2) Fair bowel prep. 3) Small vague raised lesion versus hyperplasia of mucosa sigmoid colon, path pending. 4) ASA Class III. 5) Withdrawal time eight minutes. 6) Photo documented appendiceal orifice and ileocecal valve area. PROCEDURES: 1) Colonoscopy to cecum. 2) Hot biopsy of small raised lesion sigmoid colon versus hyperplasia versus hyperplasia mucosa of sigmoid colon. SURGEON: Dr. Brad mSith. ANESTHESIA: MAC. ESTIMATED BLOOD LOSS: Minimal. INDICATIONS: As noted above. Risks and benefits explained in detail but not limited to and consent obtained. DESCRIPTION OF PROCEDURE AND FINDINGS: The patient is taken to the endoscopy room. MAC anesthesia introduced. After official time out and no disagreement with planned procedure, digital rectal exam did not reveal any rectal masses. Video colonoscope inserted and passed up through the slightly tortuous sigmoid, descending, transverse and ascending colon around to the cecum. Appendiceal orifice and valve were photo documented. Palpation in right lower quadrant to confirm the location. Prep overall was fair. There was a little bit of liquidy, semisolid and foamy stool suction irrigated as clear as possible. The scope slowly and carefully withdrawn over the next eight minutes. There were no signs of any large polyps, masses or obstructing lesions. He did have some mild diverticulosis in the left colon. In the sigmoid colon he had two very tiny, vague raised areas. Whether these are just hyperplasia of mucosa versus normal variation of mucosa versus early polyp or hyperplastic lesion removed with hot biopsy forceps. Good hemostasis was noted. Otherwise the rectum is grossly unremarkable. The scope is withdrawn. The patient tolerated the procedure well. I will see if he has family here to discuss the findings with.
== END 2020-06-20 12:59 | disposition home or self-care (01) ==
LOC: SDC 09:13
PROVIDERS: ATTEND Surgery
DX: Z12.11 Encounter for screening for malignant neoplasm of colon (principal); K57.30 Diverticulosis of large intestine without perforation or abscess without bleeding; I10 Essential (primary) hypertension; Z86.79 Personal history of other diseases of the circulatory system; E78.5 Hyperlipidemia, unspecified; Z79.899 Other long term (current) drug therapy; J44.9 Chronic obstructive pulmonary disease, unspecified
CPT/HCPCS: 88305; 99100; J2704

== ENCOUNTER 2023-08-16 02:41 | Inpatient (IN) | payer BC, MEDICARE ==
[2023-08-16 03:28] LABS: Absolute Neutrophil Ct (ANC) 13.39 x10^3/uL (1.78-5.38); BASOPHIL % 0.3 % (0.2-1.2); Basophil (Absolute #) 0.04 x10^3/uL (0.01-0.08); Eosinophil % 0.8 % (0.8-7.0); Eosinophil (Absolute #) 0.12 x10^3/uL (0.04-0.54); Hematocrit 44.9 % (40.1-51.0); Hemoglobin 15.2 g/dL (13.7-17.5); IMMATURE GRAN # 0.16 x10^3u/L (0.001-0.031); Lymphocyte (Absolute #) 1.05 x10^3/uL (1.32-3.57); Lymphocytes % 6.6 % (21.8-53.1); Mean Cell Volume 96.8 fL (79.0-92.2); Mean Corpuscular Hemoglobin 32.8 pg (25.7-32.2); Mean Corpuscular Hgb Concent. 33.9 g/dL (32.3-36.5); Mean Platelet Volume 9.2 fL (9.4-12.4); Monocyte (Absolute #) 1.04 x10^3/uL (0.30-0.82); Monocytes % 6.6 % (5.3-12.2); Neutrophil % 84.7 % (34.0-67.9); Platelet Count 292 x10^3/uL (163-337); Red Blood Count 4.64 x10^6/uL (4.63-6.08); Red Cell Distribution Width 15.2 % (11.6-14.4); White Blood Count 15.8 x10^3/uL (4.23-9.07)
[2023-08-16 03:40] LABS: Creatinine 1 0.94 mg/dL (0.66-1.25)
[2023-08-16 03:41] LABS: ALBUMIN 4.2 g/dL (3.5-5.0); ANION GAP 13.5 MEQ/L (5-15); BILIRUBIN,TOTAL 0.9 mg/dL (0.2-1.3); Calcium 9.5 mg/dL (8.4-10.2); Potassium 4.5 mmol/L (3.5-5.1); Total Protein 7.3 g/dL (6.3-8.2)
[2023-08-16 03:41] LABS: Appearance Clear (Clear); Bacteria None Seen /HPF (None Seen); Bilirubin Negative (Negative); Blood Negative (Negative); Epithelial Cells None Seen /HPF (None Seen); Glucose, Urine Negative (Negative); Hyaline Casts NONE SEEN /LPF (0-2); Ketones Trace (Negative); Leukocyte Esterase Negative (Negative); Nitrite Negative (Negative); Ph 5.5 (4.6-8.0); Protein,Urine Dip Trace (Negative); RBC 0-2 /HPF (0-5); WBC 0-2 /HPF (0-5)
[2023-08-16 03:43] LABS: ADD URINE CULTURE? NO (NO)
[2023-08-16] MEDS ORDERED: Zofran 4 MG/2 ML VIAL ONE (04:11)
[2023-08-16] MEDS ORDERED: SUBLIMAZE 100 MCG/2 ML ONE (04:12)
[2023-08-16] MEDS: Zofran 4 MG/2 ML VIAL IV ONE (04:13)
[2023-08-16] MEDS: SUBLIMAZE 100 MCG/2 ML IV ONE (04:13)
--- NOTE | 2023-08-16 04:13 | ERPHSYRPT ---
- History of Present Illness Historian: patient, family Exam Limitations: no limitations Patient Subjective Stated Complaint: pt states he has been on antibiotics and is having abdomen pain Triage Nursing Assessment: pt ambulated into the er; pt is axo x4; c/o abd pain; pt states 8/10 pain to epigastric region; pt states pain radiates to rt flank region; abd is round, soft, tender; hyperactive bowel sounds in all quads; pt c/o nausea, denies V/D; skin PDW; vitals wnl Hx Tetanus, Diphtheria Vaccination/Date Given: Yes Hx Influenza Vaccination/Date Given: Yes Hx Pneumococcal Vaccination/Date Given: Yes Immunizations Up to Date: No <BARBARA BOB - Last Filed: 08/16/23 06:50> <SHERON CHINCHILLA - Last Filed: 08/16/23 07:53> - History of Present Illness Time Seen by Provider: 08/16/23 04:06 Physician History: 78 years old male with history of hypertension, hyperlipidemia, atrial fibrillation on Eliquis, hypothyroidism presented to the ER with complains of upper abdominal pain with nausea and dry heaving/burping for the last 4 to 5 hours with progressive worsening. Patient described this as a sharp pressure and tightening band around upper abdomen with no significant aggravating or relieving factors. Denies associated diarrhea. Worried about being constipation and his history of hernia repair. Patient has recently been treated for cough congestion with antibiotics and steroids. (BARBARA BOB) Allergies/Adverse Reactions: No Known Drug Allergies Allergy (Verified 08/16/23 02:49) Home Medications: Amiodarone HCl [Pacerone] 200 mg PO UD 06/11/20 [History] Atenolol 50 mg [Tenormin 50 mg] 50 mg PO HS 06/11/20 [History] Evolocumab [Repatha Syringe] 140 mg SQ UD 06/11/20 [History] Levothyroxine Sodium 50 Mcg [Synthroid 50 Mcg] 50 mcg PO DAILY 06/11/20 [History] Simvastatin 20Mg [Zocor 20Mg] 20 mg PO DAILY 06/11/20 [History] Lisinopril 5 mg [Zestril 5 MG] 5 mg PO DAILY 06/12/20 [History] Travel Risk - International Travel Have you traveled outside of the country in past 3 weeks: No - Emerging Infectious Disease Are you exhibiting symptoms associated with any current EIDs: No <BARBARA BOB - Last Filed: 08/16/23 06:50> - Review of Systems Constitutional: No Symptoms Eyes: No Symptoms Ears, Nose, & Throat: No Symptoms Respiratory: Cough Cardiac: No Symptoms Abdominal/Gastrointestinal: Abdominal Pain, Nausea, Vomiting Genitourinary Symptoms: No Symptoms Musculoskeletal: Arthralgias Skin: No Symptoms Neurological: No Symptoms Psychological: No Symptoms Endocrine: No Symptoms Hematologic/Lymphatic: Easy Bleeding <BARBARA BOB - Last Filed: 08/16/23 06:50> - Past Medical History Pertinent Past Medical History: Yes Neurological History: No Pertinent History ENT History: Cataracts Cardiac History: Coronary Artery Disease, High Cholesterol, Hypertension, Myocardial Infarction (ID) Respiratory History: No Pertinent History Endocrine Medical History: Hypothyroidism Musculoskeletal History: Rheumatoid Arthritis GI Medical History: Hernia, Irritable Bowel History: No Pertinent History Psycho-Social History: No Pertinent History Male Reproductive Disorders: No Pertinent History - Past Surgical History Past Surgical History: Yes Neuro Surgical History: No Pertinent History Cardiac: Cardiac Stent, Pacemaker Respiratory: No Pertinent History Gastrointestinal: Cholecystectomy, Hernia Repair Genitourinary: No Pertinent History Musculoskeletal: Orthopedic Surgery Male Surgical History: No Pertinent History Other Surgical History: RIGHT INDEX FINGER SURGERY - Social History Smoking Status: Never smoker Exposure to second hand smoke: No Drug Use: none Patient Lives Alone: No - Social Determinants of Health Will the patient participate in the screening: Yes Do you worry about a steady place to live?: No Do you have any problems with any of the following?: No known problems In the past 12 months,have you had to go without utilities?: No Transportation Issues: No Has anyone in your support network made you feel unsafe?: No Have you or anyone in your house had to go without enough: No <BARBARA BOB - Last Filed: 08/16/23 06:50> - Physical Exam General Appearance: no apparent distress, alert Eye Exam: PERRL/EOMI Ears, Nose, Throat Exam: normal ENT inspection Neck Exam: normal inspection, full range of motion Respiratory Exam: normal breath sounds, lungs clear Cardiovascular Exam: regular rate/rhythm, normal heart sounds Gastrointestinal/Abdomen Exam: soft, tenderness (Generalized), guarding, No nor mal bowel sounds Back Exam: normal inspection Extremity Exam: normal inspection, pelvis stable Neurologic Exam: alert, oriented x 3, cooperative Skin Exam: normal color SpO2 Interpretation: O2 applied SpO2: 94 O2 Delivery: Nasal Cannula <BARBARA BOB - Last Filed: 08/16/23 06:50> - Nursing Vital Signs Nursing Vital Signs: Initial Vital Signs Temperature 98.2 F 08/16/23 02:49 Pulse Rate 64 08/16/23 02:49 Respiratory Rate 18 08/16/23 02:49 Blood Pressure 137/79 08/16/23 02:49 O2 Sat by Pulse Oximetry 94 L 08/16/23 02:49 Pain Scale Pain Intensity 4 Ordered Tests: Active Orders 24 hr Category Date Time Status ABDOMEN AND PELVIS W/0 CONTRAS [CT] Stat Exams 08/16/23 04:26 Completed CHEST WITHOUT CONTRAST [CT] Stat Exams 08/16/23 04:26 Completed BLOOD CULTURE Stat Lab 08/16/23 07:33 Received CBC W DIFF Stat Lab 08/16/23 03:23 Completed CMP Stat Lab 08/16/23 03:23 Completed LIPASE Stat Lab 08/16/23 03:23 Completed MAG [MAGNESIUM] Stat Lab 08/16/23 03:15 Completed TROPONIN Q3H Lab 08/16/23 03:15 Completed TROPONIN Q3H Lab 08/16/23 07:25 Received TROPONIN Q3H Lab 08/16/23 10:15 Ordered UA W/RFX UR CULTURE Stat Lab 08/16/23 03:27 Completed Medication Summary Generic Name Dose Route Start Last Admin Trade Name Freq PRN Reason Stop Dose Admin Sodium Chloride 1,000 mls @ 125 mls/hr 08/16/23 04:15 08/16/23 04:14 Sodium Chloride 0.9% 1000 Ml IV 09/15/23 04:14 125 mls/hr .Q8H ROMEO Administration Discontinued Medications Generic Name Dose Route Start Last Admin Trade Name Freq PRN Reason Stop Dose Admin Fentanyl Citrate 50 mcg 08/16/23 04:07 08/16/23 04:13 Fentanyl Citrate 100 Mcg/2 Ml* Vial IV 08/16/23 04:08 50 mcg STAT ONE Administration Fentanyl Citrate Confirm 08/16/23 04:12 Fentanyl Citrate 100 Mcg/2 Ml* Vial Administered 08/16/23 04:13 Dose 100 mcg .ROUTE .STK-MED ONE Piperacillin Sod/Tazobactam 100 mls @ 200 mls/hr 08/16/23 06:22 08/16/23 06:26 Sod 3.375 gm/ Sodium Chloride IV 08/16/23 06:51 200 mls/hr STAT ONE Administration Sodium Chloride Confirm 08/16/23 06:26 Sodium Chloride 100ml Mini-Bag Plus Administered 08/16/23 06:27 Dose 100 mls @ ud IV .STK-MED ONE Ondansetron HCl 4 mg 08/16/23 04:07 08/16/23 04:13 Ondansetron Hcl 4 Mg/2 Ml Vial IV 08/16/23 04:08 4 mg STAT ONE Administration Ondansetron HCl Confirm 08/16/23 04:11 Ondansetron Hcl 4 Mg/2 Ml Vial Administered 08/16/23 04:12 Dose 4 mg .ROUTE .STK-MED ONE Piperacillin Sod/Tazobactam Sod Confirm 08/16/23 06:25 Piperacillin/Tazobactam Sodium 3.375 Gm Vial Administered 08/16/23 06:26 Dose 3.375 gm IV .STK-MED ONE Lab/Rad Data: Laboratory Result Diagrams 08/16/23 03:23 08/16/23 03:23 Laboratory Results 08/16/23 08/16/23 08/16/23 Range/Units 03:27 03:23 03:23 WBC 15.8 H (4.23-9.07) x10^3/uL RBC 4.64 (4.63-6.08) x10^6/uL Hgb 15.2 (13.7-17.5) g/dL Hct 44.9 (40.1-51.0) % MCV 96.8 H (79.0-92.2) fL MCH 32.8 H (25.7-32.2) pg MCHC 33.9 (32.3-36.5) g/dL RDW 15.2 H (11.6-14.4) % Plt Count 292 (163-337) x10^3/uL MPV 9.2 L (9.4-12.4) fL Gran % 84.7 H (34.0-67.9) % Immature Gran % (Auto) 1.0 H (0.001-0.429) % Nucleat RBC Rel Count 0.0 (0.00-0.2) % Eos # (Auto) 0.12 (0.04-0.54) x10^3/uL Immature Gran # (Auto) 0.16 H (0.001-0.031) x10^3u/L Absolute Lymphs (auto) 1.05 L (1.32-3.57) x10^3/uL Absolute Monos (auto) 1.04 H (0.30-0.82) x10^3/uL Absolute Nucleated RBC 0.00 (0.00-0.012) x10^3u/L Lymphocytes % 6.6 L (21.8-53.1) % Monocytes % 6.6 (5.3-12.2) % Eosinophils % 0.8 (0.8-7.0) % Basophils % 0.3 (0.2-1.2) % Absolute Granulocytes 13.39 H (1.78-5.38) x10^3/uL Basophils # 0.04 (0.01-0.08) x10^3/uL Sodium 135 (135-145) mmol/L Potassium 4.5 (3.5-5.1) mmol/L Chloride 102 (98-107) mmol/L Carbon Dioxide 25 (22-30) mmol/L Anion Gap 13.5 (5-15) MEQ/L BUN 19 (9-20) mg/dL Creatinine 0.94 (0.66-1.25) mg/dL Estimated GFR 83.0 ML/MIN Glucose 133 H (74-106) mg/dL Calcium 9.5 (8.4-10.2) mg/dL Magnesium (1.6-2.3) mg/dL Total Bilirubin 0.90 (0.2-1.3) mg/dL AST 35 (17-59) U/L ALT 34 (0-50) U/L Alkaline Phosphatase 84 (38-126) U/L Troponin I (0.000-0.033) ng/mL Serum Total Protein 7.3 (6.3-8.2) g/dL Albumin 4.2 (3.5-5.0) g/dL Lipase 44 (23-300) U/L Urine Color Yellow (Yellow) Urine Appearance Clear (Clear) Urine pH 5.5 (4.6-8.0) Ur Specific [place] 1.020 (1.005-1.030) Urine Protein Trace A (Negative) Urine Glucose (UA) Negative (Negative) mg/dL Urine Ketones Trace A (Negative) Urine Blood Negative (Negative) Urine Nitrite Negative (Negative) Urine Bilirubin Negative (Negative) Urine Urobilinogen 1.0 A (0.2) mg/dL Ur Leukocyte Esterase Negative (Negative) U Hyaline Cast (Auto) NONE SEEN (0-2) /LPF Urine Microscopic RBC 0-2 (0-5) /HPF Urine Microscopic WBC 0-2 (0-5) /HPF Ur Epithelial Cells None Seen (None Seen) /HPF Urine Bacteria None Seen (None Seen) /HPF Urine Culture Reflexed NO (NO) 08/16/23 08/16/23 Range/Units 03:15 03:15 WBC (4.23-9.07) x10^3/uL RBC (4.63-6.08) x10^6/uL Hgb (13.7-17.5) g/dL Hct (40.1-51.0) % MCV (79.0-92.2) fL MCH (25.7-32.2) pg MCHC (32.3-36.5) g/dL RDW (11.6-14.4) % Plt Count (163-337) x10^3/uL MPV (9.4-12.4) fL Gran % (34.0-67.9) % Immature Gran % (Auto) (0.001-0.429) % Nucleat RBC Rel Count (0.00-0.2) % Eos # (Auto) (0.04-0.54) x10^3/uL Immature Gran # (Auto) (0.001-0.031) x10^3u/L Absolute Lymphs (auto) (1.32-3.57) x10^3/uL Absolute Monos (auto) (0.30-0.82) x10^3/uL Absolute Nucleated RBC (0.00-0.012) x10^3u/L Lymphocytes % (21.8-53.1) % Monocytes % (5.3-12.2) % Eosinophils % (0.8-7.0) % Basophils % (0.2-1.2) % Absolute Granulocytes (1.78-5.38) x10^3/uL Basophils # (0.01-0.08) x10^3/uL Sodium (135-145) mmol/L Potassium (3.5-5.1) mmol/L Chloride (98-107) mmol/L Carbon Dioxide (22-30) mmol/L Anion Gap (5-15) MEQ/L BUN (9-20) mg/dL Creatinine (0.66-1.25) mg/dL Estimated GFR ML/MIN Glucose (74-106) mg/dL Calcium (8.4-10.2) mg/dL Magnesium 2.3 (1.6-2.3) mg/dL Total Bilirubin (0.2-1.3) mg/dL AST (17-59) U/L ALT (0-50) U/L Alkaline Phosphatase (38-126) U/L Troponin I < 0.012 (0.000-0.033) ng/mL Serum Total Protein (6.3-8.2) g/dL Albumin (3.5-5.0) g/dL Lipase (23-300) U/L Urine Color (Yellow) Urine Appearance (Clear) Urine pH (4.6-8.0) Ur Specific [place] (1.005-1.030) Urine Protein (Negative) Urine Glucose (UA) (Negative) mg/dL Urine Ketones (Negative) Urine Blood (Negative) Urine Nitrite (Negative) Urine Bilirubin (Negative) Urine Urobilinogen (0.2) mg/dL Ur Leukocyte Esterase (Negative) U Hyaline Cast (Auto) (0-2) /LPF Urine Microscopic RBC (0-5) /HPF Urine Microscopic WBC (0-5) /HPF Ur Epithelial Cells (None Seen) /HPF Urine Bacteria (None Seen) /HPF Urine Culture Reflexed (NO) - Progress Progress: improved Counseled pt/family regarding: lab results, diagnosis, need for follow-up, rad results <BARBARA BOB - Last Filed: 08/16/23 06:50> <SHERON CHINCHILLA - Last Filed: 08/16/23 07:53> - Progress Progress Note: 08/16/23 06:51 78 years old is evaluated for abdominal pain with nausea and dry heaving. Patient does not have any vomiting. Is given fluids and symptomatic treatment, on reevaluation pain is better. Patient has hypoactive bowel sounds. Diffuse tenderness and mild distention of abdomen. Workup showed white count of 15, chemistries fairly unremarkable, CT abdomen pelvis showed small bowel obstruction with distended jejunal loop and collapse of ileum and colonic loops. I have also obtained CT chest as patient was complaining of cough congestion symptoms and has taken antibiotics, was getting hypoxic and it showed diffuse patchy opacities consistent with pneumonia and is given a dose of Zosyn. Patient is already taking outpatient doxycycline and currently on Z-Kiko. I have paged general surgery and hospitalist. I have shared the results of workup with patient and family and plan of admission which they understand and agree. I have transferred care to Dr. Chinchilla at shift change for final disposition. (BARBARA BOB) 08/16/23 07:33 Per report given to me at shift change Dr. Chivo Li was paged/called out at 6:25 AM. He called back at approximately 6:55 AM and asked us to contact Dr. Smith who comes on at [address] Smith was then called and called back approximately 7:07 AM. He was briefly informed regarding this patient. Dr. Smith was told that the patient had both pneumonia and a small bowel obstruction. Dr. Smiht was informed of the patient's name which he stated he did recall his name. Dr. Smith also was told that the patient had a 15,000 white count. I was unable to provide him with any more information at that time because I was unable to log onto the computer provide him with more specific information. Dr. Smith did state to put in a nasogastric tube. He was told that there will be a consult for him to see this patient if he is excepted in house by the telehospitalist. 08/16/23 07:[address] Stephenson, the telehospitalist on-call at this time. I reviewed the patient history, presenting complaint, response to our medical intervention and the lab, EKG and radiographic study results. She agrees with admitting this patient. We will write a formal consultation for Dr. Smith. (SHERON CHINCHILLA) Medical Desision Making - Independent Historian Additional History obtained from: Spouse - Discussion of managment Care discussed with:: specialist Reviewed:: Test results Agreed on:: Treatment plan Will see patient: in hospital - Diagnostic Testing Diagnostic test were ordered, analyzed, and reviewed by me: Yes Radiological Interpretation: Reviewed by me, Teleradiologist Report - Risk of complications The pt has a mod risk of morbidity or mortality based on: Need for prescription drug management The pt has a high risk of morbidity or mortality based on: Decision regarding hospitilization or escalation of hosp level of care <BARBARA BOB - Last Filed: 08/16/23 06:50> - Departure Departure Disposition: Observation Critical Care Time: No <BARBARA BOB - Last Filed: 08/16/23 06:50> - Departure Departure Disposition: In-patient Admission <SHERON CHINCHILLA - Last Filed: 08/16/23 07:53> - Departure Clinical Impression: Intestinal obstruction, Pneumonia Condition: Stable Referrals: AMRITA SONG MD [Primary Care Provider] - Follow up/PCP as directed
[2023-08-16] MEDS: Sodium Chloride 0.9% 1000 ML 1,000 ML IV SCH ×2 (04:14→11:48)
--- NOTE | 2023-08-16 05:23 | XRAY ---
CLINICAL HISTORY: cough COMPARISON: None TECHNIQUE: Contiguous 3.[address] images of the chest were acquired without contrast. Coronal and sagittal reconstructions were obtained.?one of the following dose reduction techniques were utilized for this exam: Automated exposure control, adjustment of the mA and/or kV according to patient size, use of iterative reconstruction? FINDINGS: Multiple bilateral lower lobes subsegmental patchy areas of air opacification, reticulations, and thick atelectasis, likely inflammatory/infectious pneumonic in nature. Minimal bilateral basal pleural reaction, otherwise no free or encysted pleural effusion. Heart size is normal, and there is no pericardial effusion. A two-lead pacemaker is noted. Aortic and coronary atheromatous calcifications. No pathologically enlarged mediastinal, hilar, or axillary lymph node was identified. Thoracic spondylotic changes. The scanned upper abdomen shows gastric distension. IMPRESSION: Multiple bilateral lower lobes subsegmental patchy areas of air opacification, reticulations, and thick atelectasis, likely inflammatory/infectious. [facility] ER was called at [phone] at 4:14 AM HEALTH PROFESSOR, 08/16/2023 and medical findings were verbally communicated to Joby Graham. Electronically Signed by: Tressa Chowdhury MD. (08/16/2023 05:19:02 EDT)
--- NOTE | 2023-08-16 05:27 | XRAY ---
CLINICAL HISTORY: gen abd pain, obstruction? COMPARISON: 06/10/2020 TECHNIQUE: A CT scan of the abdomen and pelvis was performed without contrast. Coronal and sagittal reconstructive images were also obtained. One of the following dose reduction techniques were utilized for this exam: Automated exposure control, adjustment of the mA and/or kV according to patient size, use of iterative reconstruction? FINDINGS: Multiple dilated loops of small bowel are seen in the abdomen, with few air-fluid levels in them and a maximum caliber of 4 cm of jejunal bowel loops. The terminal ilial loops appear collapsed with no definite obstructing masses could be appreciated. Collapsed colonic loops. Appendix is normal. The liver is average in size showing a smooth outline. No focal or diffuse parenchymal abnormality. The intrahepatic biliary radicals and the bile ducts are unremarkable. A small right subhepatic isodense nodule is seen. The spleen, pancreas, and adrenal gland are unremarkable. The kidneys are unremarkable. No calculi or hydronephrosis. The gallbladder is surgically removed. Multiple colonic diverticular outpouchings are seen with clear surrounding fat. The appendix is unremarkable. No gross bowel masses. No significant mesenteric, pelvic, or retroperitoneal lymph node enlargement. Vascular atherosclerotic changes. No ascites or retroperitoneal collections. The urinary bladder is unremarkable. Prostatic concretions. Degenerative changes of the spine. No aggressive bone lesions. A hiatus hernia. Left fat-containing inguinoscrotal hernia. For lung findings, kindly refer to the dedicated exam. IMPRESSION: The above findings suggest small bowel obstruction. Appears slightly prominent in today's study. Recommended clinical correlation. Non-complicated colonic diverticulosis. Stable. The rest of the findings; as detailed Stable. [facility] ER was called at [phone] at 4:22 AM ETL LEAD, 08/16/2023 and medical findings were verbally communicated to Joby Graham. Electronically Signed by: Tressa Chowdhury MD. (08/16/2023 05:23:41 EDT)
[2023-08-16] MEDS ORDERED: PIPERACILLIN/TAZOBACTAM IV ONE (06:25)
[2023-08-16] MEDS ORDERED: Sodium Chloride 100ML MINI-BAG PLUS 100 ML IV ONE (06:26)
[2023-08-16] MEDS: PIPERACILLIN/TAZOBACTAM 3.375 GM in Sodium Chloride 100ML MINI-BAG PLUS 100 ML IV ONE (06:26)
[2023-08-16] MEDS ORDERED: FEVERALL 650 MG PR PRN (09:31)
[2023-08-16] MEDS ORDERED: Zofran 4 MG/2 ML VIAL IV PRN (09:31)
--- NOTE | 2023-08-16 09:31 | PCM.HP ---
<JUNE RICARDO - Last Filed: 08/16/23 10:18> History of Present Illness - Chief Complaint Chief Complaint: n/v/abdominal pain/distention/ cough/sob Date: 08/16/23 History of Present Illness: is a 78 year old male with a pmhx of HTN, HLD, AFIB (Eliquis), pacemaker, CAD with 3 cardiac stents, and hypothyroidism who presented to ED 08/16/23 after experiencing severe abdominal pain/distention, eructation, and nausea. Patient reports that symptoms started 08/15/23. He has been taking doxycycline/steroids/zithromax for pneumonia diagnosed two weeks ago and thought symptoms were related to the medications. Additional symptoms of productive cough with yellow sputum and shortness of breath with the onset of two weeks ago. No fever. Last BM 08/15/23. No flatus. Upon exam HOB at 45 degrees, abdomen is distended with hyperactive bowel sounds x 4 quads. NG placed with 500mls of brown gastric drainage. Patient does have a history of Hernia repair. In ED, vitals stable on arrival. CT abdomen/pelvis consistent with small bowel obstruction with distended jejunal loop and collapse of ileum and colonic loops. . CT chest showing bilateral lower lobe opacification - likely inflammatory/infectious. Labs remarkable for leukocytosis with WBC elevated at 15.8. Patient given Fentanyl, zofran, Zosyn and IVF in ED. Dr. Quezada consulted in ED- advised NG tube, further consult pending. Admission for pneumonia/small bowel obstruction. Plan to cotinue Zosyn - surgery to decide if SBO is to be treated conservatively vs surgically. - Review of Systems Constitutional: Fatigue Eyes: No Symptoms Ears, Nose, & Throat: Nose Congestion Respiratory: Cough, Short Of Breath Cardiac: No Symptoms Abdominal/Gastrointestinal: Abdominal Pain, Nausea, Appetite Changes, Other (eructation/-flatus) Genitourinary Symptoms: No Symptoms Musculoskeletal: No Symptoms Skin: No Symptoms, Other (NG tube ) Neurological: No Symptoms Endocrine: No Symptoms Hematologic/Lymphatic: No Symptoms Immunological/Allergic: No Symptoms Medications & Allergies Home Medications: Home Medication List Amiodarone HCl [Pacerone] 200 mg PO UD 06/11/20 [History Confirmed 08/16/23] Evolocumab [Repatha Syringe] 140 mg SQ UD 06/11/20 [History Confirmed 08/16/23] Levothyroxine Sodium 50 Mcg [Synthroid 50 Mcg] 50 mcg PO DAILY 06/11/20 [History Confirmed 08/16/23] Simvastatin 20Mg [Zocor 20Mg] 20 mg PO DAILY 06/11/20 [History Confirmed 08/16/23] Lisinopril 5 mg [Zestril 5 MG] 5 mg PO DAILY 06/12/20 [History Confirmed 08/16/23] Apixaban [Eliquis] 5 mg PO BID #0 06/20/20 [Rx Confirmed 08/16/23] Metoprolol Tartrate 50 mg [Lopressor 50 MG] 50 mg PO HS 08/16/23 [History Confirmed 08/16/23] Allergies/Adverse Reactions: Allergies Allergy/AdvReac Type Severity Reaction Status Date / Time No Known Drug Allergies Allergy Verified 08/16/23 09:37 - Past Medical History Past Medical History: Yes Neurological History: No Pertinent History ENT History: Cataracts Cardiac History: Coronary Artery Disease, High Cholesterol, Hypertension, Myocardial Infarction (VT) Respiratory History: No Pertinent History Endocrine Medical History: Hypothyroidism Musculoskelatal History: Rheumatoid Arthritis GI Medical History: Hernia, Irritable Bowel History: No Pertinent History Pyscho-Social History: No Pertinent History Male Reproductive Disorders: No Pertinent History - Past Surgical History Past Surgical History: Yes Neuro Surgical History: No Pertinent History Cardiac History: Cardiac Stent, Pacemaker Respiratory Surgery: No Pertinent History GI Surgical History: Cholecystectomy, Hernia Repair Genitourinary Surgical Hx: No Pertinent History Musculskeletal Surgical Hx: Orthopedic Surgery Male Surgical History: No Pertinent History Other Surgical History: RIGHT INDEX FINGER SURGERY - Social History Smoking Status: Never smoker Exposure to second hand smoke: No Alcohol: None Drug Use: none - Social Determinants of Health Will the patient participate in the screening: Yes Do you worry about a steady place to live?: No Do you have any problems with any of the following?: No known problems In the past 12 months,have you had to go without utilities?: No Have you or anyone in your house had to go without enough: No Transportation Issues: No Has anyone in your support network made you feel unsafe?: No - Physical Exam Vital Signs: Vital Signs - 24 hr Temp Pulse Resp BP BP Pulse Ox 08/16/23 08:30 137/72 08/16/23 08:00 60 132/70 91 L 08/16/23 07:01 135/63 94 L 08/16/23 06:54 94 L 08/16/23 06:31 130/68 95 08/16/23 06:00 60 127/56 96 08/16/23 05:30 64 134/66 95 08/16/23 05:03 60 140/68 94 L 08/16/23 05:00 95 08/16/23 04:50 93 L 08/16/23 04:40 93 L 08/16/23 04:33 93 L 08/16/23 04:01 61 142/72 94 L 08/16/23 03:30 58 L 135/70 92 L 08/16/23 03:00 60 127/64 95 08/16/23 02:50 60 137/79 90 L 08/16/23 02:49 98.2 F 64 18 137/79 94 L General Appearance: no apparent distress Neurologic Exam: alert, oriented x 3, cooperative Eye Exam: PERRL/EOMI Ears, Nose, Throat Exam: dry mucous membranes Neck Exam: normal inspection Respiratory Exam: crackles/rales Cardiovascular Exam: regular rate/rhythm, normal heart sounds Gastrointestinal/Abdomen Exam: distention, other (Hyperactive BS x 4 quads) Rectal Exam: deferred Back Exam: normal inspection Extremity Exam: normal inspection Skin Exam: normal color Results - Labs Lab/Micro Results: Lab Results-Last 24 Hours 08/16/23 08/16/23 08/16/23 Range/Units 03:15 03:15 03:23 WBC 15.8 H (4.23-9.07) x10^3/uL RBC 4.64 (4.63-6.08) x10^6/uL Hgb 15.2 (13.7-17.5) g/dL Hct 44.9 (40.1-51.0) % MCV 96.8 H (79.0-92.2) fL MCH 32.8 H (25.7-32.2) pg MCHC 33.9 (32.3-36.5) g/dL RDW 15.2 H (11.6-14.4) % Plt Count 292 (163-337) x10^3/uL MPV 9.2 L (9.4-12.4) fL Gran % 84.7 H (34.0-67.9) % Immature Gran % (Auto) 1.0 H (0.001-0.429) % Nucleat RBC Rel Count 0.0 (0.00-0.2) % Eos # (Auto) 0.12 (0.04-0.54) x10^3/uL Immature Gran # (Auto) 0.16 H (0.001-0.031) x10^3u/L Absolute Lymphs (auto) 1.05 L (1.32-3.57) x10^3/uL Absolute Monos (auto) 1.04 H (0.30-0.82) x10^3/uL Absolute Nucleated RBC 0.00 (0.00-0.012) x10^3u/L Lymphocytes % 6.6 L (21.8-53.1) % Monocytes % 6.6 (5.3-12.2) % Eosinophils % 0.8 (0.8-7.0) % Basophils % 0.3 (0.2-1.2) % Absolute Granulocytes 13.39 H (1.78-5.38) x10^3/uL Basophils # 0.04 (0.01-0.08) x10^3/uL Sodium (135-145) mmol/L Potassium (3.5-5.1) mmol/L Chloride (98-107) mmol/L Carbon Dioxide (22-30) mmol/L Anion Gap (5-15) MEQ/L BUN (9-20) mg/dL Creatinine (0.66-1.25) mg/dL Estimated GFR ML/MIN Glucose (74-106) mg/dL Calcium (8.4-10.2) mg/dL Magnesium 2.3 (1.6-2.3) mg/dL Total Bilirubin (0.2-1.3) mg/dL AST (17-59) U/L ALT (0-50) U/L Alkaline Phosphatase (38-126) U/L Troponin I < 0.012 (0.000-0.033) ng/mL Serum Total Protein (6.3-8.2) g/dL Albumin (3.5-5.0) g/dL Lipase (23-300) U/L Urine Color (Yellow) Urine Appearance (Clear) Urine pH (4.6-8.0) Ur Specific Proctor (1.005-1.030) Urine Protein (Negative) Urine Glucose (UA) (Negative) mg/dL Urine Ketones (Negative) Urine Blood (Negative) Urine Nitrite (Negative) Urine Bilirubin (Negative) Urine Urobilinogen (0.2) mg/dL Ur Leukocyte Esterase (Negative) U Hyaline Cast (Auto) (0-2) /LPF Urine Microscopic RBC (0-5) /HPF Urine Microscopic WBC (0-5) /HPF Ur Epithelial Cells (None Seen) /HPF Urine Bacteria (None Seen) /HPF Urine Culture Reflexed (NO) 08/16/23 08/16/23 08/16/23 Range/Units 03:23 03:27 07:25 WBC (4.23-9.07) x10^3/uL RBC (4.63-6.08) x10^6/uL Hgb (13.7-17.5) g/dL Hct (40.1-51.0) % MCV (79.0-92.2) fL MCH (25.7-32.2) pg MCHC (32.3-36.5) g/dL RDW (11.6-14.4) % Plt Count (163-337) x10^3/uL MPV (9.4-12.4) fL Gran % (34.0-67.9) % Immature Gran % (Auto) (0.001-0.429) % Nucleat RBC Rel Count (0.00-0.2) % Eos # (Auto) (0.04-0.54) x10^3/uL Immature Gran # (Auto) (0.001-0.031) x10^3u/L Absolute Lymphs (auto) (1.32-3.57) x10^3/uL Absolute Monos (auto) (0.30-0.82) x10^3/uL Absolute Nucleated RBC (0.00-0.012) x10^3u/L Lymphocytes % (21.8-53.1) % Monocytes % (5.3-12.2) % Eosinophils % (0.8-7.0) % Basophils % (0.2-1.2) % Absolute Granulocytes (1.78-5.38) x10^3/uL Basophils # (0.01-0.08) x10^3/uL Sodium 135 (135-145) mmol/L Potassium 4.5 (3.5-5.1) mmol/L Chloride 102 (98-107) mmol/L Carbon Dioxide 25 (22-30) mmol/L Anion Gap 13.5 (5-15) MEQ/L BUN 19 (9-20) mg/dL Creatinine 0.94 (0.66-1.25) mg/dL Estimated GFR 83.0 ML/MIN Glucose 133 H (74-106) mg/dL Calcium 9.5 (8.4-10.2) mg/dL Magnesium (1.6-2.3) mg/dL Total Bilirubin 0.90 (0.2-1.3) mg/dL AST 35 (17-59) U/L ALT 34 (0-50) U/L Alkaline Phosphatase 84 (38-126) U/L Troponin I < 0.012 (0.000-0.033) ng/mL Serum Total Protein 7.3 (6.3-8.2) g/dL Albumin 4.2 (3.5-5.0) g/dL Lipase 44 (23-300) U/L Urine Color Yellow (Yellow) Urine Appearance Clear (Clear) Urine pH 5.5 (4.6-8.0) Ur Specific Proctor 1.020 (1.005-1.030) Urine Protein Trace A (Negative) Urine Glucose (UA) Negative (Negative) mg/dL Urine Ketones Trace A (Negative) Urine Blood Negative (Negative) Urine Nitrite Negative (Negative) Urine Bilirubin Negative (Negative) Urine Urobilinogen 1.0 A (0.2) mg/dL Ur Leukocyte Esterase Negative (Negative) U Hyaline Cast (Auto) NONE SEEN (0-2) /LPF Urine Microscopic RBC 0-2 (0-5) /HPF Urine Microscopic WBC 0-2 (0-5) /HPF Ur Epithelial Cells None Seen (None Seen) /HPF Urine Bacteria None Seen (None Seen) /HPF Urine Culture Reflexed NO (NO) - Radiology Impressions Radiology Exams & Impressions: Radiology Procedures Category Date Time Status ABDOMEN AND PELVIS W/0 CONTRAS [CT] Stat Exams 08/16/23 04:26 Completed CHEST WITHOUT CONTRAST [CT] Stat Exams 08/16/23 04:26 Completed Assessment/Plan (1) Small bowel obstruction Current Visit: Yes Status: Acute Assessment & Plan: -CT demonstrates small bowel obstruction with distended jejunal loop and collapse of ileum and colonic loops -Surgery consulted- NG placed with good output -NPO/IVF -Monitor renal/lytes daily Code(s): K56.609 - UNSP INTESTNL OBST, UNSP TO PARTIAL VERSUS COMPLETE OBST (2) Pneumonia Current Visit: Yes Status: Acute Assessment & Plan: -CT chest with diffuse patchy opacities consistent with pneumonia -Zosyn given in ED, will continue - patient failed OP doxycycline/zithromax -Supplemental oxygen with goal spo2 > 92% -MRSA -Sputum cult -blood cultures pending -resp viral panel -RT eval- NEBs/INH Code(s): J18.9 - PNEUMONIA, UNSPECIFIED ORGANISM (3) Essential hypertension Current Visit: No Status: Acute Assessment & Plan: -stable, continue home meds Code(s): I10 - ESSENTIAL (PRIMARY) HYPERTENSION (4) Hyperlipidemia Current Visit: No Status: Acute Assessment & Plan: -continue statin Code(s): E78.5 - HYPERLIPIDEMIA, UNSPECIFIED (5) Hypothyroid Current Visit: No Status: Acute Assessment & Plan: -continue synthroid Code(s): E03.9 - HYPOTHYROIDISM, UNSPECIFIED (6) Afib Current Visit: Yes Status: Acute Assessment & Plan: -Continue metoprolol, may need to hold Eliquis if surgery is indicated -Pacemaker VTE: Bilateral SCD PPI: protonix Dispo; 2-3 days Code: Full Code(s): I48.91 - UNSPECIFIED ATRIAL FIBRILLATION <ELLIE ECKERT - Last Filed: 08/16/23 21:47> History of Present Illness - Chief Complaint History of Present Illness: is a 78 year old male. - Physical Exam Vital Signs: Vital Signs - 24 hr Temp Pulse Resp BP BP Pulse Ox 08/16/23 20:00 98 F 61 16 158/67 94 L 08/16/23 16:00 98.9 F 57 L 16 143/66 92 L 08/16/23 09:41 97.8 F 60 16 146/67 93 L 08/16/23 09:31 60 16 93 L 08/16/23 08:30 137/72 08/16/23 08:00 60 132/70 91 L 08/16/23 07:01 135/63 94 L 08/16/23 06:54 94 L 08/16/23 06:31 130/68 95 08/16/23 06:00 60 127/56 96 08/16/23 05:30 64 134/66 95 08/16/23 05:03 60 140/68 94 L 08/16/23 05:00 95 08/16/23 04:50 93 L 08/16/23 04:40 93 L 08/16/23 04:33 93 L 08/16/23 04:01 61 142/72 94 L 08/16/23 03:30 58 L 135/70 92 L 08/16/23 03:00 60 127/64 95 08/16/23 02:50 60 137/79 90 L 08/16/23 02:49 98.2 F 64 18 137/79 94 L Results - Labs Lab/Micro Results: Lab Results-Last 24 Hours 08/16/23 08/16/23 08/16/23 Range/Units 03:15 03:15 03:23 WBC 15.8 H (4.23-9.07) x10^3/uL RBC 4.64 (4.63-6.08) x10^6/uL Hgb 15.2 (13.7-17.5) g/dL Hct 44.9 (40.1-51.0) % MCV 96.8 H (79.0-92.2) fL MCH 32.8 H (25.7-32.2) pg MCHC 33.9 (32.3-36.5) g/dL RDW 15.2 H (11.6-14.4) % Plt Count 292 (163-337) x10^3/uL MPV 9.2 L (9.4-12.4) fL Gran % 84.7 H (34.0-67.9) % Immature Gran % (Auto) 1.0 H (0.001-0.429) % Nucleat RBC Rel Count 0.0 (0.00-0.2) % Eos # (Auto) 0.12 (0.04-0.54) x10^3/uL Immature Gran # (Auto) 0.16 H (0.001-0.031) x10^3u/L Absolute Lymphs (auto) 1.05 L (1.32-3.57) x10^3/uL Absolute Monos (auto) 1.04 H (0.30-0.82) x10^3/uL Absolute Nucleated RBC 0.00 (0.00-0.012) x10^3u/L Lymphocytes % 6.6 L (21.8-53.1) % Monocytes % 6.6 (5.3-12.2) % Eosinophils % 0.8 (0.8-7.0) % Basophils % 0.3 (0.2-1.2) % Absolute Granulocytes 13.39 H (1.78-5.38) x10^3/uL Basophils # 0.04 (0.01-0.08) x10^3/uL Sodium (135-145) mmol/L Potassium (3.5-5.1) mmol/L Chloride (98-107) mmol/L Carbon Dioxide (22-30) mmol/L Anion Gap (5-15) MEQ/L BUN (9-20) mg/dL Creatinine (0.66-1.25) mg/dL Estimated GFR ML/MIN Glucose (74-106) mg/dL POC Glucometer (74 to 106) mg/dL Calcium (8.4-10.2) mg/dL Magnesium 2.3 (1.6-2.3) mg/dL Total Bilirubin (0.2-1.3) mg/dL AST (17-59) U/L ALT (0-50) U/L Alkaline Phosphatase (38-126) U/L Troponin I < 0.012 (0.000-0.033) ng/mL Serum Total Protein (6.3-8.2) g/dL Albumin (3.5-5.0) g/dL Lipase (23-300) U/L Urine Color (Yellow) Urine Appearance (Clear) Urine pH (4.6-8.0) Ur Specific Proctor (1.005-1.030) Urine Protein (Negative) Urine Glucose (UA) (Negative) mg/dL Urine Ketones (Negative) Urine Blood (Negative) Urine Nitrite (Negative) Urine Bilirubin (Negative) Urine Urobilinogen (0.2) mg/dL Ur Leukocyte Esterase (Negative) U Hyaline Cast (Auto) (0-2) /LPF Urine Microscopic RBC (0-5) /HPF Urine Microscopic WBC (0-5) /HPF Ur Epithelial Cells (None Seen) /HPF Urine Bacteria (None Seen) /HPF Urine Culture Reflexed (NO) Nasal Screen MRSA (PCR) (NEGATIVE) Influenza Type A Ag (NEGATIVE) Influenza Type B Ag (NEGATIVE) RSV (PCR) (NEGATIVE) SARS-CoV-2 (PCR) (NEGATIVE) 08/16/23 08/16/23 08/16/23 Range/Units 03:23 03:27 07:25 WBC (4.23-9.07) x10^3/uL RBC (4.63-6.08) x10^6/uL Hgb (13.7-17.5) g/dL Hct (40.1-51.0) % MCV (79.0-92.2) fL MCH (25.7-32.2) pg MCHC (32.3-36.5) g/dL RDW (11.6-14.4) % Plt Count (163-337) x10^3/uL MPV (9.4-12.4) fL Gran % (34.0-67.9) % Immature Gran % (Auto) (0.001-0.429) % Nucleat RBC Rel Count (0.00-0.2) % Eos # (Auto) (0.04-0.54) x10^3/uL Immature Gran # (Auto) (0.001-0.031) x10^3u/L Absolute Lymphs (auto) (1.32-3.57) x10^3/uL Absolute Monos (auto) (0.30-0.82) x10^3/uL Absolute Nucleated RBC (0.00-0.012) x10^3u/L Lymphocytes % (21.8-53.1) % Monocytes % (5.3-12.2) % Eosinophils % (0.8-7.0) % Basophils % (0.2-1.2) % Absolute Granulocytes (1.78-5.38) x10^3/uL Basophils # (0.01-0.08) x10^3/uL Sodium 135 (135-145) mmol/L Potassium 4.5 (3.5-5.1) mmol/L Chloride 102 (98-107) mmol/L Carbon Dioxide 25 (22-30) mmol/L Anion Gap 13.5 (5-15) MEQ/L BUN 19 (9-20) mg/dL Creatinine 0.94 (0.66-1.25) mg/dL Estimated GFR 83.0 ML/MIN Glucose 133 H (74-106) mg/dL POC Glucometer (74 to 106) mg/dL Calcium 9.5 (8.4-10.2) mg/dL Magnesium (1.6-2.3) mg/dL Total Bilirubin 0.90 (0.2-1.3) mg/dL AST 35 (17-59) U/L ALT 34 (0-50) U/L Alkaline Phosphatase 84 (38-126) U/L Troponin I < 0.012 (0.000-0.033) ng/mL Serum Total Protein 7.3 (6.3-8.2) g/dL Albumin 4.2 (3.5-5.0) g/dL Lipase 44 (23-300) U/L Urine Color Yellow (Yellow) Urine Appearance Clear (Clear) Urine pH 5.5 (4.6-8.0) Ur Specific Proctor 1.020 (1.005-1.030) Urine Protein Trace A (Negative) Urine Glucose (UA) Negative (Negative) mg/dL Urine Ketones Trace A (Negative) Urine Blood Negative (Negative) Urine Nitrite Negative (Negative) Urine Bilirubin Negative (Negative) Urine Urobilinogen 1.0 A (0.2) mg/dL Ur Leukocyte Esterase Negative (Negative) U Hyaline Cast (Auto) NONE SEEN (0-2) /LPF Urine Microscopic RBC 0-2 (0-5) /HPF Urine Microscopic WBC 0-2 (0-5) /HPF Ur Epithelial Cells None Seen (None Seen) /HPF Urine Bacteria None Seen (None Seen) /HPF Urine Culture Reflexed NO (NO) Nasal Screen MRSA (PCR) (NEGATIVE) Influenza Type A Ag (NEGATIVE) Influenza Type B Ag (NEGATIVE) RSV (PCR) (NEGATIVE) SARS-CoV-2 (PCR) (NEGATIVE) 08/16/23 08/16/23 08/16/23 Range/Units 10:35 10:59 12:05 WBC (4.23-9.07) x10^3/uL RBC (4.63-6.08) x10^6/uL Hgb (13.7-17.5) g/dL Hct (40.1-51.0) % MCV (79.0-92.2) fL MCH (25.7-32.2) pg MCHC (32.3-36.5) g/dL RDW (11.6-14.4) % Plt Count (163-337) x10^3/uL MPV (9.4-12.4) fL Gran % (34.0-67.9) % Immature Gran % (Auto) (0.001-0.429) % Nucleat RBC Rel Count (0.00-0.2) % Eos # (Auto) (0.04-0.54) x10^3/uL Immature Gran # (Auto) (0.001-0.031) x10^3u/L Absolute Lymphs (auto) (1.32-3.57) x10^3/uL Absolute Monos (auto) (0.30-0.82) x10^3/uL Absolute Nucleated RBC (0.00-0.012) x10^3u/L Lymphocytes % (21.8-53.1) % Monocytes % (5.3-12.2) % Eosinophils % (0.8-7.0) % Basophils % (0.2-1.2) % Absolute Granulocytes (1.78-5.38) x10^3/uL Basophils # (0.01-0.08) x10^3/uL Sodium (135-145) mmol/L Potassium (3.5-5.1) mmol/L Chloride (98-107) mmol/L Carbon Dioxide (22-30) mmol/L Anion Gap (5-15) MEQ/L BUN (9-20) mg/dL Creatinine (0.66-1.25) mg/dL Estimated GFR ML/MIN Glucose (74-106) mg/dL POC Glucometer 105 (74 to 106) mg/dL Calcium (8.4-10.2) mg/dL Magnesium (1.6-2.3) mg/dL Total Bilirubin (0.2-1.3) mg/dL AST (17-59) U/L ALT (0-50) U/L Alkaline Phosphatase (38-126) U/L Troponin I < 0.012 (0.000-0.033) ng/mL Serum Total Protein (6.3-8.2) g/dL Albumin (3.5-5.0) g/dL Lipase (23-300) U/L Urine Color (Yellow) Urine Appearance (Clear) Urine pH (4.6-8.0) Ur Specific Proctor (1.005-1.030) Urine Protein (Negative) Urine Glucose (UA) (Negative) mg/dL Urine Ketones (Negative) Urine Blood (Negative) Urine Nitrite (Negative) Urine Bilirubin (Negative) Urine Urobilinogen (0.2) mg/dL Ur Leukocyte Esterase (Negative) U Hyaline Cast (Auto) (0-2) /LPF Urine Microscopic RBC (0-5) /HPF Urine Microscopic WBC (0-5) /HPF Ur Epithelial Cells (None Seen) /HPF Urine Bacteria (None Seen) /HPF Urine Culture Reflexed (NO) Nasal Screen MRSA (PCR) NOT DETECTED (NEGATIVE) Influenza Type A Ag NEGATIVE (NEGATIVE) Influenza Type B Ag NEGATIVE (NEGATIVE) RSV (PCR) NEGATIVE (NEGATIVE) SARS-CoV-2 (PCR) NEGATIVE (NEGATIVE) 08/16/23 08/16/23 Range/Units 16:06 20:05 WBC (4.23-9.07) x10^3/uL RBC (4.63-6.08) x10^6/uL Hgb (13.7-17.5) g/dL Hct (40.1-51.0) % MCV (79.0-92.2) fL MCH (25.7-32.2) pg MCHC (32.3-36.5) g/dL RDW (11.6-14.4) % Plt Count (163-337) x10^3/uL MPV (9.4-12.4) fL Gran % (34.0-67.9) % Immature Gran % (Auto) (0.001-0.429) % Nucleat RBC Rel Count (0.00-0.2) % Eos # (Auto) (0.04-0.54) x10^3/uL Immature Gran # (Auto) (0.001-0.031) x10^3u/L Absolute Lymphs (auto) (1.32-3.57) x10^3/uL Absolute Monos (auto) (0.30-0.82) x10^3/uL Absolute Nucleated RBC (0.00-0.012) x10^3u/L Lymphocytes % (21.8-53.1) % Monocytes % (5.3-12.2) % Eosinophils % (0.8-7.0) % Basophils % (0.2-1.2) % Absolute Granulocytes (1.78-5.38) x10^3/uL Basophils # (0.01-0.08) x10^3/uL Sodium (135-145) mmol/L Potassium (3.5-5.1) mmol/L Chloride (98-107) mmol/L Carbon Dioxide (22-30) mmol/L Anion Gap (5-15) MEQ/L BUN (9-20) mg/dL Creatinine (0.66-1.25) mg/dL Estimated GFR ML/MIN Glucose (74-106) mg/dL POC Glucometer 97 94 (74 to 106) mg/dL Calcium (8.4-10.2) mg/dL Magnesium (1.6-2.3) mg/dL Total Bilirubin (0.2-1.3) mg/dL AST (17-59) U/L ALT (0-50) U/L Alkaline Phosphatase (38-126) U/L Troponin I (0.000-0.033) ng/mL Serum Total Protein (6.3-8.2) g/dL Albumin (3.5-5.0) g/dL Lipase (23-300) U/L Urine Color (Yellow) Urine Appearance (Clear) Urine pH (4.6-8.0) Ur Specific Proctor (1.005-1.030) Urine Protein (Negative) Urine Glucose (UA) (Negative) mg/dL Urine Ketones (Negative) Urine Blood (Negative) Urine Nitrite (Negative) Urine Bilirubin (Negative) Urine Urobilinogen (0.2) mg/dL Ur Leukocyte Esterase (Negative) U Hyaline Cast (Auto) (0-2) /LPF Urine Microscopic RBC (0-5) /HPF Urine Microscopic WBC (0-5) /HPF Ur Epithelial Cells (None Seen) /HPF Urine Bacteria (None Seen) /HPF Urine Culture Reflexed (NO) Nasal Screen MRSA (PCR) (NEGATIVE) Influenza Type A Ag (NEGATIVE) Influenza Type B Ag (NEGATIVE) RSV (PCR) (NEGATIVE) SARS-CoV-2 (PCR) (NEGATIVE) Accuchecks Date 08/16/23 Date 08/16/23 Time 16:17 Time 11:00 - Radiology Impressions Radiology Exams & Impressions: Radiology Procedures Category Date Time Status ABDOMEN AND PELVIS W/0 CONTRAS [CT] Stat Exams 08/16/23 04:26 Completed CHEST WITHOUT CONTRAST [CT] Stat Exams 08/16/23 04:26 Completed - Other Procedures and Tests Respiratory Therapy 08/16/23 09:31 Oxygen Nasal Cannula 2 lpm 08/16/23 10:33 EKG REPEAT IN AM ELSA Encounter - ELSA Encounter Attestation ELSA Encounter Attestation: "IhkarmenpersonallyseenandDAT Vences andhavediscussed pertinent aspects of their care with June Kiser agree with the history, physical exam (any modifications based on my personal exam will be noted below), assessment, and plan as outlined in original note. Please see immediately below for my summary of findings and additional assessment and plan along with any meaningful corrections/explanations to the Subjective/Objective portions of the ELSA note will be noted." My portion of the encounter took place via telemedicine. -SBO with h/o prior hernia repair and cholecystectomy but no h/o SBO per patient. NGT, IVF and await surgery consult. Zosyn for pneumonia.
[2023-08-16 12:47] LABS: INFLUENZA A NEGATIVE (NEGATIVE); INFLUENZA B NEGATIVE (NEGATIVE); RESPIRATORY SYNCTIAL VIRUS NEGATIVE (NEGATIVE); SARS-CoV-2 Xpert Express NEGATIVE (NEGATIVE)
[2023-08-16] MEDS: PATIENT OWN MEDICATION SQ SCH (16:24)
[2023-08-16] MEDS: Cordarone 200 MG PO SCH (16:34)
[2023-08-16] MEDS: PIPERACILLIN/TAZOBACTAM 3.375 GM in Sodium Chloride 100ML MINI-BAG PLUS 100 ML IV SCH (17:07)
[2023-08-16] MEDS: MORPHINE SULFATE 2 MG INJ IV PRN (20:09)
[2023-08-16] MEDS: MELATONIN PO PRN (21:10)
[2023-08-16] MEDS: Lopressor 50 MG PO SCH (21:10)
--- NOTE | 2023-08-17 00:55 | XRAY ---
CLINICAL HISTORY: NG tube placement COMPARISON: CT dated 08/16/2023 was reviewed. TECHNIQUE: X-ray chest was performed in 1 view: AP projection. FINDINGS: Poor inspiratory effort noted. The nasogastric tube is in the distal gastroesophageal junction region and fenestra in the lower esophagus, advised a few centimeter forward positioning. Minimal infiltrates are noted in the left lower zone with basal atelectasis A two-lead left-sided pacemaker is noted. Blunting of the left costophrenic angle. Increased bilateral perihilar vascularity. Heart size is normal. Right cardiophrenic and costophrenic angles are clear. IMPRESSION: 1. The nasogastric tube is in the distal gastroesophageal junction region and fenestra in the lower esophagus, advised 10cm centimeter forward positioning. 2. Blunting of the left costophrenic angle could be due to minimal pleural effusion/pleural thickening. 3. Minimal infiltrates are noted in the left lower zone with basal atelectasis 4. Advise clinical and lab correlation to rule out infection. [facility] ER was called at [phone] at 11:49 PM CORPORATE ADMINISTRATIVE ASSISTANT, 08/16/2023 and Mellissa Nurse was informed about significant finding Electronically Signed by: Tressa Chowdhury MD. (08/17/2023 00:51:27 EDT)
[2023-08-17 06:19] LABS: BILIRUBIN,TOTAL 0.7 mg/dL (0.2-1.3); Calcium 7.9 mg/dL (8.4-10.2); MAGNESIUM 2.1 mg/dL (1.6-2.3)
[2023-08-17] MEDS: CHLORASEPTIC SPRAY 180 ML PO PRN (06:39)
[2023-08-17 06:52] LABS: Absolute Neutrophil Ct (ANC) 10.94 x10^3/uL (1.78-5.38); BASOPHIL % 0.3 % (0.2-1.2); Basophil (Absolute #) 0.04 x10^3/uL (0.01-0.08); Eosinophil % 1.6 % (0.8-7.0); Eosinophil (Absolute #) 0.22 x10^3/uL (0.04-0.54); Hematocrit 39.4 % (40.1-51.0); Hemoglobin 12.7 g/dL (13.7-17.5); IMMATURE GRAN # 0.07 x10^3u/L (0.001-0.031); IMMATURE GRAN % 0.5 % (0.001-0.429); Lymphocyte (Absolute #) 1.34 x10^3/uL (1.32-3.57); Lymphocytes % 9.8 % (21.8-53.1); Mean Cell Volume 101.8 fL (79.0-92.2); Mean Corpuscular Hemoglobin 32.8 pg (25.7-32.2); Mean Corpuscular Hgb Concent. 32.2 g/dL (32.3-36.5); Mean Platelet Volume 8.9 fL (9.4-12.4); Monocyte (Absolute #) 1.02 x10^3/uL (0.30-0.82); Monocytes % 7.5 % (5.3-12.2); Neutrophil % 80.3 % (34.0-67.9); Platelet Count 242 x10^3/uL (163-337); Red Blood Count 3.87 x10^6/uL (4.63-6.08); Red Cell Distribution Width 15.3 % (11.6-14.4); White Blood Count 13.6 x10^3/uL (4.23-9.07)
[2023-08-17 07:06] LABS: ALBUMIN 3.2 g/dL (3.5-5.0); ANION GAP 10.3 MEQ/L (5-15); Creatinine 1 0.92 mg/dL (0.66-1.25); EST GLOMERULAR FILTRATION RATE 85.1 ML/MIN; Potassium 3.7 mmol/L (3.5-5.1); Total Protein 5.8 g/dL (6.3-8.2)
--- NOTE | 2023-08-17 09:02 | PCM.NOTE ---
Date and Time: 08/17/23 0855 Subjective Assessment: HPI: is a 78 year old male with a pmhx of HTN, HLD, AFIB (Eliquis), pacemaker, CAD with 3 cardiac stents, and hypothyroidism who presented to ED 08/16/23 after experiencing severe abdominal pain/distention, eructation, and nausea. Patient reports that symptoms started 08/15/23. He has been taking d oxycycline/steroids/zithromax for pneumonia diagnosed two weeks ago and thought symptoms were related to the medications. Additional symptoms of productive cough with yellow sputum and shortness of breath with the onset of two weeks ago. No fever. Last BM 08/15/23. No flatus. Upon exam HOB at 45 degrees, abdomen is distended with hyperactive bowel sounds x 4 quads. NG placed with 500mls of brown gastric drainage. Patient does have a history of Hernia repair. In ED, vitals stable on arrival. CT abdomen/pelvis consistent with small bowel obstruction with distended jejunal loop and collapse of ileum and colonic loops. . CT chest showing bilateral lower lobe opacification - likely inflammatory/infectious. Labs remarkable for leukocytosis with WBC elevated at 15.8. Patient given Fentanyl, zofran, Zosyn and IVF in ED. Dr. Quezada consulted in ED- advised NG tube, further consult pending. Admission for pneumonia/small bowel obstruction. Plan to continue Zosyn - surgery consulted - no surgical intervention -recs to continue holding eliquis NPO with ice chips, collect stool for cdiff - KUB to monitor treatment response. 08/16: Met with patient bedside. States he is feeling better to today, does have a sore throat from NG - chloreseptic spray ordered. Abdomen less distended and soft. BS x 4 quads. Total I&O balance -941. No BM or flatus. Vitals stable. WBC trending down. MRSA not detected by nasal swab. Non-surgical treatment per Surgery. KUB today pending. Will monitor -keep NPO/NG. Surgery following. Continue Zosyn for pneumonia. Denies fever,cp, abdominal pain, SAMANO, dizziness, N/V/D. - Review of Systems Constitutional: No Symptoms Eyes: No Symptoms Ears, Nose, & Throat: Nose Congestion, Throat Pain Respiratory: Cough, Short Of Breath Cardiac: No Symptoms Abdominal/Gastrointestinal: Abdominal Pain Genitourinary Symptoms: No Symptoms Musculoskeletal: No Symptoms Skin: No Symptoms Neurological: No Symptoms Psychological: No Symptoms Endocrine: No Symptoms Hematologic/Lymphatic: No Symptoms Immunological/Allergic: No Symptoms Objective Exam General Appearance: no apparent distress Neurologic Exam: alert, oriented x 3, cooperative Skin Exam: normal color Eye Exam: PERRL Ears, Nose, Throat Exam: normal ENT inspection Neck Exam: normal inspection Respiratory Exam: diminished breath sounds, crackles/rales Cardiovascular Exam: regular rate/rhythm, normal heart sounds Gastrointestinal/Abdomen Exam: soft, normal bowel sounds, distention Extremity Exam: normal inspection, normal range of motion Back Exam: normal inspection Male Genitalia Exam: deferred Rectal Exam: deferred Objective Data Vital Signs: Vital Signs - 24 hr Temp Pulse Resp BP Pulse Ox 08/17/23 07:23 97.1 F 60 18 140/63 93 L 08/17/23 04:00 98.6 F 61 18 132/60 89 L 08/16/23 23:48 98.9 F 60 18 135/63 88 L 08/16/23 20:00 98 F 61 16 158/67 94 L 08/16/23 18:40 91 L 08/16/23 16:00 98.9 F 57 L 16 143/66 92 L 08/16/23 09:41 97.8 F 60 16 146/67 93 L 08/16/23 09:31 60 16 93 L Pain Assessment - Last Documented Pain Intensity 0 Pain Scale Used 0-10 Pain Scale Intake and Output: Intake & Output 08/14/23 08/15/23 08/16/23 08/17/23 11:59 11:59 11:59 11:59 Intake Total 306 2230 Output Total 1150 2950 Balance -844 -720 Weight 89.6 kg 89.2 kg Lab Results: Lab Results-Last 24 Hours 08/16/23 08/16/23 08/16/23 Range/Units 10:35 10:59 12:05 WBC (4.23-9.07) x10^3/uL RBC (4.63-6.08) x10^6/uL Hgb (13.7-17.5) g/dL Hct (40.1-51.0) % MCV (79.0-92.2) fL MCH (25.7-32.2) pg MCHC (32.3-36.5) g/dL RDW (11.6-14.4) % Plt Count (163-337) x10^3/uL MPV (9.4-12.4) fL Gran % (34.0-67.9) % Immature Gran % (Auto) (0.001-0.429) % Nucleat RBC Rel Count (0.00-0.2) % Eos # (Auto) (0.04-0.54) x10^3/uL Immature Gran # (Auto) (0.001-0.031) x10^3u/L Absolute Lymphs (auto) (1.32-3.57) x10^3/uL Absolute Monos (auto) (0.30-0.82) x10^3/uL Absolute Nucleated RBC (0.00-0.012) x10^3u/L Lymphocytes % (21.8-53.1) % Monocytes % (5.3-12.2) % Eosinophils % (0.8-7.0) % Basophils % (0.2-1.2) % Absolute Granulocytes (1.78-5.38) x10^3/uL Basophils # (0.01-0.08) x10^3/uL Sodium (135-145) mmol/L Potassium (3.5-5.1) mmol/L Chloride (98-107) mmol/L Carbon Dioxide (22-30) mmol/L Anion Gap (5-15) MEQ/L BUN (9-20) mg/dL Creatinine (0.66-1.25) mg/dL Estimated GFR ML/MIN Glucose (74-106) mg/dL POC Glucometer 105 (74 to 106) mg/dL Calcium (8.4-10.2) mg/dL Magnesium (1.6-2.3) mg/dL Total Bilirubin (0.2-1.3) mg/dL AST (17-59) U/L ALT (0-50) U/L Alkaline Phosphatase (38-126) U/L Troponin I < 0.012 (0.000-0.033) ng/mL Serum Total Protein (6.3-8.2) g/dL Albumin (3.5-5.0) g/dL Nasal Screen MRSA (PCR) NOT DETECTED (NEGATIVE) Influenza Type A Ag NEGATIVE (NEGATIVE) Influenza Type B Ag NEGATIVE (NEGATIVE) RSV (PCR) NEGATIVE (NEGATIVE) SARS-CoV-2 (PCR) NEGATIVE (NEGATIVE) 08/16/23 08/16/23 08/16/23 Range/Units 16:06 20:05 23:43 WBC (4.23-9.07) x10^3/uL RBC (4.63-6.08) x10^6/uL Hgb (13.7-17.5) g/dL Hct (40.1-51.0) % MCV (79.0-92.2) fL MCH (25.7-32.2) pg MCHC (32.3-36.5) g/dL RDW (11.6-14.4) % Plt Count (163-337) x10^3/uL MPV (9.4-12.4) fL Gran % (34.0-67.9) % Immature Gran % (Auto) (0.001-0.429) % Nucleat RBC Rel Count (0.00-0.2) % Eos # (Auto) (0.04-0.54) x10^3/uL Immature Gran # (Auto) (0.001-0.031) x10^3u/L Absolute Lymphs (auto) (1.32-3.57) x10^3/uL Absolute Monos (auto) (0.30-0.82) x10^3/uL Absolute Nucleated RBC (0.00-0.012) x10^3u/L Lymphocytes % (21.8-53.1) % Monocytes % (5.3-12.2) % Eosinophils % (0.8-7.0) % Basophils % (0.2-1.2) % Absolute Granulocytes (1.78-5.38) x10^3/uL Basophils # (0.01-0.08) x10^3/uL Sodium (135-145) mmol/L Potassium (3.5-5.1) mmol/L Chloride (98-107) mmol/L Carbon Dioxide (22-30) mmol/L Anion Gap (5-15) MEQ/L BUN (9-20) mg/dL Creatinine (0.66-1.25) mg/dL Estimated GFR ML/MIN Glucose (74-106) mg/dL POC Glucometer 97 94 89 (74 to 106) mg/dL Calcium (8.4-10.2) mg/dL Magnesium (1.6-2.3) mg/dL Total Bilirubin (0.2-1.3) mg/dL AST (17-59) U/L ALT (0-50) U/L Alkaline Phosphatase (38-126) U/L Troponin I (0.000-0.033) ng/mL Serum Total Protein (6.3-8.2) g/dL Albumin (3.5-5.0) g/dL Nasal Screen MRSA (PCR) (NEGATIVE) Influenza Type A Ag (NEGATIVE) Influenza Type B Ag (NEGATIVE) RSV (PCR) (NEGATIVE) SARS-CoV-2 (PCR) (NEGATIVE) 08/17/23 08/17/23 08/17/23 Range/Units 04:08 05:52 05:52 WBC 13.6 H (4.23-9.07) x10^3/uL RBC 3.87 L (4.63-6.08) x10^6/uL Hgb 12.7 L (13.7-17.5) g/dL Hct 39.4 L (40.1-51.0) % MCV 101.8 H (79.0-92.2) fL MCH 32.8 H (25.7-32.2) pg MCHC 32.2 L (32.3-36.5) g/dL RDW 15.3 H (11.6-14.4) % Plt Count 242 (163-337) x10^3/uL MPV 8.9 L (9.4-12.4) fL Gran % 80.3 H (34.0-67.9) % Immature Gran % (Auto) 0.5 H (0.001-0.429) % Nucleat RBC Rel Count 0.0 (0.00-0.2) % Eos # (Auto) 0.22 (0.04-0.54) x10^3/uL Immature Gran # (Auto) 0.07 H (0.001-0.031) x10^3u/L Absolute Lymphs (auto) 1.34 (1.32-3.57) x10^3/uL Absolute Monos (auto) 1.02 H (0.30-0.82) x10^3/uL Absolute Nucleated RBC 0.00 (0.00-0.012) x10^3u/L Lymphocytes % 9.8 L (21.8-53.1) % Monocytes % 7.5 (5.3-12.2) % Eosinophils % 1.6 (0.8-7.0) % Basophils % 0.3 (0.2-1.2) % Absolute Granulocytes 10.94 H (1.78-5.38) x10^3/uL Basophils # 0.04 (0.01-0.08) x10^3/uL Sodium 138 (135-145) mmol/L Potassium 3.7 (3.5-5.1) mmol/L Chloride 107 (98-107) mmol/L Carbon Dioxide 24 (22-30) mmol/L Anion Gap 10.3 (5-15) MEQ/L BUN 20 (9-20) mg/dL Creatinine 0.92 (0.66-1.25) mg/dL Estimated GFR 85.1 ML/MIN Glucose 83 (74-106) mg/dL POC Glucometer 84 (74 to 106) mg/dL Calcium 7.9 L D (8.4-10.2) mg/dL Magnesium 2.1 (1.6-2.3) mg/dL Total Bilirubin 0.70 (0.2-1.3) mg/dL AST 32 (17-59) U/L ALT 25 (0-50) U/L Alkaline Phosphatase 66 (38-126) U/L Troponin I (0.000-0.033) ng/mL Serum Total Protein 5.8 L (6.3-8.2) g/dL Albumin 3.2 L (3.5-5.0) g/dL Nasal Screen MRSA (PCR) (NEGATIVE) Influenza Type A Ag (NEGATIVE) Influenza Type B Ag (NEGATIVE) RSV (PCR) (NEGATIVE) SARS-CoV-2 (PCR) (NEGATIVE) 08/17/23 Range/Units 06:45 WBC (4.23-9.07) x10^3/uL RBC (4.63-6.08) x10^6/uL Hgb (13.7-17.5) g/dL Hct (40.1-51.0) % MCV (79.0-92.2) fL MCH (25.7-32.2) pg MCHC (32.3-36.5) g/dL RDW (11.6-14.4) % Plt Count (163-337) x10^3/uL MPV (9.4-12.4) fL Gran % (34.0-67.9) % Immature Gran % (Auto) (0.001-0.429) % Nucleat RBC Rel Count (0.00-0.2) % Eos # (Auto) (0.04-0.54) x10^3/uL Immature Gran # (Auto) (0.001-0.031) x10^3u/L Absolute Lymphs (auto) (1.32-3.57) x10^3/uL Absolute Monos (auto) (0.30-0.82) x10^3/uL Absolute Nucleated RBC (0.00-0.012) x10^3u/L Lymphocytes % (21.8-53.1) % Monocytes % (5.3-12.2) % Eosinophils % (0.8-7.0) % Basophils % (0.2-1.2) % Absolute Granulocytes (1.78-5.38) x10^3/uL Basophils # (0.01-0.08) x10^3/uL Sodium (135-145) mmol/L Potassium (3.5-5.1) mmol/L Chloride (98-107) mmol/L Carbon Dioxide (22-30) mmol/L Anion Gap (5-15) MEQ/L BUN (9-20) mg/dL Creatinine (0.66-1.25) mg/dL Estimated GFR ML/MIN Glucose (74-106) mg/dL POC Glucometer 76 (74 to 106) mg/dL Calcium (8.4-10.2) mg/dL Magnesium (1.6-2.3) mg/dL Total Bilirubin (0.2-1.3) mg/dL AST (17-59) U/L ALT (0-50) U/L Alkaline Phosphatase (38-126) U/L Troponin I (0.000-0.033) ng/mL Serum Total Protein (6.3-8.2) g/dL Albumin (3.5-5.0) g/dL Nasal Screen MRSA (PCR) (NEGATIVE) Influenza Type A Ag (NEGATIVE) Influenza Type B Ag (NEGATIVE) RSV (PCR) (NEGATIVE) SARS-CoV-2 (PCR) (NEGATIVE) Radiology Exams: Radiology Procedures Category Date Time Status ABDOMEN 2 VIEW DAILY Exams 08/17/23 05:30 Ordered ABDOMEN 2 VIEW DAILY Exams 08/18/23 05:30 Ordered ABDOMEN 2 VIEW DAILY Exams 08/19/23 05:30 Ordered ABDOMEN AND PELVIS W/0 CONTRAS [CT] Stat Exams 08/16/23 04:26 Completed CHEST 1 VIEW (PORTABLE) Stat Exams 08/16/23 22:50 Completed CHEST WITHOUT CONTRAST [CT] Stat Exams 08/16/23 04:26 Completed KUB DAILY Exams 08/18/23 05:30 Ordered KUB DAILY Exams 08/19/23 05:30 Ordered Assessment/Plan (1) Small bowel obstruction Current Visit: Yes Status: Acute Assessment & Plan: -CT demonstrates small bowel obstruction with distended jejunal loop and collapse of ileum and colonic loops -Surgery consulted- NG placed with good output -NPO/IVF -Monitor renal/lytes daily 08/16: -Surgery following- agree with plan to continue NG, monitor with KUB, NPO with ice chips/meds -continue IVF -Monitor renal/lytes Code(s): K56.609 - UNSP INTESTNL OBST, UNSP TO PARTIAL VERSUS COMPLETE OBST (2) Pneumonia Current Visit: Yes Status: Acute Assessment & Plan: -CT chest with diffuse patchy opacities consistent with pneumonia -Zosyn given in ED, will continue - patient failed OP doxycycline/zithromax -Supplemental oxygen with goal spo2 > 92% -MRSA -Sputum cult -blood cultures pending -resp viral panel -RT eval- NEBs/INH 08/16: -MRSA negative -Afebrile -Blood/sputum culture pending -Continue Zosyn Code(s): J18.9 - PNEUMONIA, UNSPECIFIED ORGANISM (3) Essential hypertension Current Visit: No Status: Acute Assessment & Plan: -stable, continue home meds Code(s): I10 - ESSENTIAL (PRIMARY) HYPERTENSION (4) Hyperlipidemia Current Visit: No Status: Acute Assessment & Plan: -continue statin Code(s): E78.5 - HYPERLIPIDEMIA, UNSPECIFIED (5) Hypothyroid Current Visit: No Status: Acute Assessment & Plan: -continue synthroid Code(s): E03.9 - HYPOTHYROIDISM, UNSPECIFIED (6) Afib Current Visit: Yes Status: Acute Assessment & Plan: -Continue metoprolol, may need to hold Eliquis if surgery is indicated -Pacemaker VTE: Bilateral SCD PPI: protonix Dispo; 2-3 days Code: Full Code(s): K56.609 - UNSP INTESTNL OBST, UNSP TO PARTIAL VERSUS COMPLETE OBST (2) Pneumonia Current Visit: Yes Status: Acute Code(s): J18.9 - PNEUMONIA, UNSPECIFIED ORGANISM (3) Essential hypertension Current Visit: No Status: Acute Code(s): I10 - ESSENTIAL (PRIMARY) HYPERTENSION (4) Hyperlipidemia Current Visit: No Status: Acute Code(s): E78.5 - HYPERLIPIDEMIA, UNSPECIFIED (5) Hypothyroid Current Visit: No Status: Acute Code(s): E03.9 - HYPOTHYROIDISM, UNSPECIFIED (6) Afib Current Visit: Yes Status: Acute Code(s): I48.91 - UNSPECIFIED ATRIAL FIBRILLATION
[2023-08-17] MEDS: SYNTHROID 50 MCG PO SCH (10:51)
[2023-08-17] MEDS: ZOCOR 20MG PO SCH (10:51)
[2023-08-17] MEDS: Zestril 5 MG PO SCH (10:51)
[2023-08-17] MEDS: Cordarone 200 MG PO SCH (11:09)
[2023-08-17] MEDS: ENOXAPARIN SODIUM SQ SCH (11:11)
--- NOTE | 2023-08-17 11:16 | XRAY ---
CLINICAL HISTORY: small bowel obstruction COMPARISON: CT 08/16/2023. TECHNIQUE: X-ray of the abdomen was performed in multiple AP supine views. FINDINGS: Multiple fluid-gas levels of varying sizes are seen centrally in the abdomen. Distended bowel loops seen in the abdomen. No definite evidence of free air was noted within the abdomen IMPRESSION: 1. Multiple air-fluid levels are noted in the abdominal region. The above findings suggest small bowel obstruction. 2. Distended bowel loops seen in the abdomen.. Electronically Signed by: Tressa Chowdhury MD. (08/17/2023 11:12:00 EDT)
[2023-08-17] MEDS ORDERED: GlucaGen 1 MG IM PRN (16:28)
[2023-08-17] MEDS: D50W 50 ml Abboject IV PRN (16:31)
[2023-08-17] MEDS: Glutose 15 GM ORAL GEL PO ONE (16:41)
--- NOTE | 2023-08-17 17:12 | CONS ---
HISTORY: A 78-year-old gentleman whose was sick and in the hospital with pneumonia, then he was coughing by the time she went home. He has been sick with respiratory issues and on oral antibiotics for a couple of weeks according to the patient. He had a little bit of abdominal distention. He did have a bowel movement yesterday. He had some nausea and belching. He has a significant past medical history of hypertension, hyperlipidemia. He is in AFib; he has been on Eliquis. He has a pacemaker, coronary artery disease, coronary stents, hypothyroidism. He was taking doxycycline, steroids, Zithromax for pneumonia. He apparently was in during the night and had a CT scan. He had some fluid-filled bowel loops. He also had a CT of the chest that showed pneumonia. Dr. Chivo Li was called earlier and they told him to call me. I had trouble getting the patient's information earlier from the ER physicians. The patient was being admitted to the hospitalist for the pneumonia who asked that we see the patient in consult. Patient denies any bowel surgery in the past. He did have some inguinal hernias in the past. He may have had a superficial abdominal wall hernia in the past, but he has not had any bowel surgery, he said, in the past. His CT did not show any signs of any bowel or any recurrent hernia or anything. He does have some fat in his abdominal wall. PAST MEDICAL HISTORY: Multiple medical problems as noted above, significant cardiac history. PAST SURGICAL HISTORY: He has had coronary stents and pacemaker in the past. He had cholecystectomy in the past. He has had some orthopedic surgery and index finger surgery in the past. Again, he has a history of inguinal hernias repaired in the past. It sounds like he may have had a small abdominal wall hernia repair in the past, but he denied any bowel surgery or other intra-abdominal surgery. HOME MEDICATIONS: Amiodarone, Repatha, levothyroxine, statin, lisinopril, Eliquis, metoprolol. ALLERGIES: No known drug allergies. SOCIAL HISTORY: No smoking or alcohol. REVIEW OF SYSTEMS: All systems are reviewed per Present Illness above. He is feeling much better since he had an NG tube placed. His original film shows significantly dilated and distended stomach and a bunch of fluid throughout the bowel loops. He denies any chest pain. He is feeling much better at this time, afebrile, nontoxic. Vital signs stable currently. LABORATORY DATA AND TESTS: His white count was 15.8 on admission, hemoglobin 15.2. PHYSICAL EXAMINATION: GENERAL: No acute distress. HEENT: Sclerae are anicteric. NECK: No JVD. CHEST: Equal excursion, nonlabored breathing. CARDIOVASCULAR: Regular rate and rhythm. ABDOMEN: He does have an NG in place. Soft. There is some mild distention. There are no peritoneal signs. EXTREMITIES: No cyanosis. NEUROLOGIC: Alert and oriented, moving extremities symmetrically. PSYCHIATRIC: Appropriate mood and affect. IMPRESSION: A 78-year-old gentleman being treated for pneumonia for the past couple of weeks. He has been on antibiotics and steroids. He did have a bowel movement yesterday. Whether this is an ileus or some gastritis or enteritis related to the antibiotics he has been on for a while, an ileus given his pneumonia infection, versus some sort of partial obstruction. Either way, he is nontoxic and does not need any emergent surgical intervention and the family agrees. We will continue NG decompression and follow serial films. Hopefully, he will improve over the next day or two. If he fails to improve over the next couple of days, could consider small-bowel followthrough the first of the week, but either way, given the fact that he is not having any major intra-abdominal surgery, I informed the patient that given his recent illness and multiple antibiotic use, I question whether this is more of an ileus and nonsurgical issue at this point. Either way, continue conservative management, NG decompression, just ice chips for now and necessary meds, and check some films on a daily basis if available.
[2023-08-17] MEDS: Dulcolax 10 MG SUPP PR PRN (19:28)
[2023-08-17] MEDS: Glutose 15 GM ORAL GEL PO PRN (20:40)
[2023-08-18] MEDS: Dextrose 5%-NS IV Solution 1000 ML 1,000 ML IV SCH (00:06)
[2023-08-18 05:50] LABS: Absolute Neutrophil Ct (ANC) 8.13 x10^3/uL (1.78-5.38); BASOPHIL % 0.5 % (0.2-1.2); Basophil (Absolute #) 0.06 x10^3/uL (0.01-0.08); Eosinophil % 2.1 % (0.8-7.0); Eosinophil (Absolute #) 0.23 x10^3/uL (0.04-0.54); Hematocrit 36.6 % (40.1-51.0); Hemoglobin 12.1 g/dL (13.7-17.5); IMMATURE GRAN # 0.05 x10^3u/L (0.001-0.031); IMMATURE GRAN % 0.5 % (0.001-0.429); Lymphocyte (Absolute #) 1.41 x10^3/uL (1.32-3.57); Lymphocytes % 12.7 % (21.8-53.1); Mean Cell Volume 99.7 fL (79.0-92.2); Mean Corpuscular Hgb Concent. 33.1 g/dL (32.3-36.5); Monocyte (Absolute #) 1.19 x10^3/uL (0.30-0.82); Monocytes % 10.7 % (5.3-12.2); Neutrophil % 73.5 % (34.0-67.9); Platelet Count 223 x10^3/uL (163-337); Red Blood Count 3.67 x10^6/uL (4.63-6.08); Red Cell Distribution Width 14.7 % (11.6-14.4); White Blood Count 11.1 x10^3/uL (4.23-9.07)
--- NOTE | 2023-08-18 05:59 | PCM.NOTE ---
Date and Time: 08/18/23 0553 Subjective Assessment: HPI: is a 78 year old male with a pmhx of HTN, HLD, AFIB (Eliquis), pacemaker, CAD with 3 cardiac stents, and hypothyroidism who presented to ED 08/16/23 after experiencing severe abdominal pain/distention, eructation, and nausea. Patient reports that symptoms started 08/15/23. He has been taking d oxycycline/steroids/zithromax for pneumonia diagnosed two weeks ago and thought symptoms were related to the medications. Additional symptoms of productive cough with yellow sputum and shortness of breath with the onset of two weeks ago. No fever. Last BM 08/15/23. No flatus. Upon exam HOB at 45 degrees, abdomen is distended with hyperactive bowel sounds x 4 quads. NG placed with 500mls of brown gastric drainage. Patient does have a history of Hernia repair. In ED, vitals stable on arrival. CT abdomen/pelvis consistent with small bowel obstruction with distended jejunal loop and collapse of ileum and colonic loops. . CT chest showing bilateral lower lobe opacification - likely inflammatory/infectious. Labs remarkable for leukocytosis with WBC elevated at 15.8. Patient given Fentanyl, zofran, Zosyn and IVF in ED. Dr. Quezada consulted in ED feels this is ileus vs gastritis/enteritis r/t antibiotics vs obstruction- advised NG tube,series films - possibl small bowel followthrough. Admission for pneumonia/? small bowel obstruction. Plan to continue Zosyn for pneumonia - surgery eval with recs for - no surgical intervention -treat conservatively - recs to continue holding eliquis (lovenox per surg), NPO with ice chips, collect stool for cdiff - serial films. 08/16: Met with patient bedside. States he is feeling better to today, does have a sore throat from NG - chloreseptic spray ordered. Abdomen less distended and soft. BS x 4 quads. Total I&O balance -941. No BM or flatus. Vitals stable. WBC trending down. MRSA not detected by nasal swab. Non-surgical treatment per Surgery. KUB today pending. Will monitor -keep NPO/NG. Surgery following. Continue Zosyn for pneumonia. Denies fever,cp, abdominal pain, SAMANO, dizziness, N/V/D. 08/17: Met with patient bedside. Reports +BM/+flatus overnight. NG tube secured. Dyspnea and cough have improved. Abdominal xray with regression of the previously noted multiple fluid-gas levels, now the small bowel seen distended, with no obvious air-fluid leveling. Patient remains NPO with ice chips/meds - blood glucose levels were trending low yesterday and D5 IVF initiated. Denies fever, cp, abdominal pain, SAMANO, dizziness, N/V/D. Blood and sputum culture pending. <JUNE RICARDO - Last Filed: 08/18/23 09:48> Date and Time: 08/18/231946 <ELLIE ECKERT - Last Filed: 08/18/23 19:49> - Review of Systems Constitutional: No Symptoms Eyes: No Symptoms Ears, Nose, & Throat: No Symptoms Respiratory: Cough Cardiac: No Symptoms Abdominal/Gastrointestinal: No Symptoms Genitourinary Symptoms: No Symptoms Musculoskeletal: No Symptoms Skin: No Symptoms Neurological: No Symptoms Psychological: No Symptoms Endocrine: No Symptoms Hematologic/Lymphatic: No Symptoms Immunological/Allergic: No Symptoms <JUNE RICARDO - Last Filed: 08/18/23 09:48> Objective Exam General Appearance: no apparent distress Neurologic Exam: alert, oriented x 3, cooperative Skin Exam: normal color Eye Exam: PERRL Ears, Nose, Throat Exam: normal ENT inspection Neck Exam: normal inspection Respiratory Exam: crackles/rales Cardiovascular Exam: regular rate/rhythm, normal heart sounds Gastrointestinal/Abdomen Exam: soft, other (Hypoactive BS x 4 quads) Extremity Exam: normal inspection Back Exam: normal inspection Male Genitalia Exam: deferred Rectal Exam: deferred <JUNE RICARDO - Last Filed: 08/18/23 09:48> Objective Data Vital Signs: Vital Signs - 24 hr Temp Pulse Resp BP Pulse Ox 08/18/23 04:00 99.1 F 61 18 138/65 96 08/17/23 23:41 99.3 F 62 17 144/66 94 L 08/17/23 19:47 99.5 F 55 L 18 151/69 95 08/17/23 19:13 92 L 08/17/23 16:00 98.0 F 58 L 20 158/70 91 L 08/17/23 11:21 98.2 F 63 19 150/67 94 L 08/17/23 07:23 97.1 F 60 18 140/63 93 L Pain Assessment - Last Documented Pain Intensity 0 Pain Scale Used 0-10 Pain Scale Intake and Output: Intake & Output 08/15/23 08/16/23 08/17/23 08/18/23 11:59 11:59 11:59 11:59 Intake Total 306 2230 2313 Output Total 1150 3450 1300 Balance -844 -1220 1013 Weight 89.6 kg 89.2 kg Lab Results: Lab Results-Last 24 Hours 08/17/23 08/17/23 08/17/23 Range/Units 05:00 05:52 05:52 WBC 13.6 H (4.23-9.07) x10^3/uL RBC 3.87 L (4.63-6.08) x10^6/uL Hgb 12.7 L (13.7-17.5) g/dL Hct 39.4 L (40.1-51.0) % MCV 101.8 H (79.0-92.2) fL MCH 32.8 H (25.7-32.2) pg MCHC 32.2 L (32.3-36.5) g/dL RDW 15.3 H (11.6-14.4) % Plt Count 242 (163-337) x10^3/uL MPV 8.9 L (9.4-12.4) fL Gran % 80.3 H (34.0-67.9) % Immature Gran % (Auto) 0.5 H (0.001-0.429) % Nucleat RBC Rel Count 0.0 (0.00-0.2) % Eos # (Auto) 0.22 (0.04-0.54) x10^3/uL Immature Gran # (Auto) 0.07 H (0.001-0.031) x10^3u/L Absolute Lymphs (auto) 1.34 (1.32-3.57) x10^3/uL Absolute Monos (auto) 1.02 H (0.30-0.82) x10^3/uL Absolute Nucleated RBC 0.00 (0.00-0.012) x10^3u/L Lymphocytes % 9.8 L (21.8-53.1) % Monocytes % 7.5 (5.3-12.2) % Eosinophils % 1.6 (0.8-7.0) % Basophils % 0.3 (0.2-1.2) % Absolute Granulocytes 10.94 H (1.78-5.38) x10^3/uL Basophils # 0.04 (0.01-0.08) x10^3/uL Sodium 138 (135-145) mmol/L Potassium 3.7 (3.5-5.1) mmol/L Chloride 107 (98-107) mmol/L Carbon Dioxide 24 (22-30) mmol/L Anion Gap 10.3 (5-15) MEQ/L BUN 20 (9-20) mg/dL Creatinine 0.92 (0.66-1.25) mg/dL Estimated GFR 85.1 ML/MIN Glucose 83 (74-106) mg/dL POC Glucometer (74 to 106) mg/dL Hemoglobin A1c 5.91 (4.5-6.0) % Calcium 7.9 L D (8.4-10.2) mg/dL Magnesium 2.1 (1.6-2.3) mg/dL Total Bilirubin 0.70 (0.2-1.3) mg/dL AST 32 (17-59) U/L ALT 25 (0-50) U/L Alkaline Phosphatase 66 (38-126) U/L Serum Total Protein 5.8 L (6.3-8.2) g/dL Albumin 3.2 L (3.5-5.0) g/dL 08/17/23 08/17/23 08/17/23 Range/Units 06:45 10:53 16:16 WBC (4.23-9.07) x10^3/uL RBC (4.63-6.08) x10^6/uL Hgb (13.7-17.5) g/dL Hct (40.1-51.0) % MCV (79.0-92.2) fL MCH (25.7-32.2) pg MCHC (32.3-36.5) g/dL RDW (11.6-14.4) % Plt Count (163-337) x10^3/uL MPV (9.4-12.4) fL Gran % (34.0-67.9) % Immature Gran % (Auto) (0.001-0.429) % Nucleat RBC Rel Count (0.00-0.2) % Eos # (Auto) (0.04-0.54) x10^3/uL Immature Gran # (Auto) (0.001-0.031) x10^3u/L Absolute Lymphs (auto) (1.32-3.57) x10^3/uL Absolute Monos (auto) (0.30-0.82) x10^3/uL Absolute Nucleated RBC (0.00-0.012) x10^3u/L Lymphocytes % (21.8-53.1) % Monocytes % (5.3-12.2) % Eosinophils % (0.8-7.0) % Basophils % (0.2-1.2) % Absolute Granulocytes (1.78-5.38) x10^3/uL Basophils # (0.01-0.08) x10^3/uL Sodium (135-145) mmol/L Potassium (3.5-5.1) mmol/L Chloride (98-107) mmol/L Carbon Dioxide (22-30) mmol/L Anion Gap (5-15) MEQ/L BUN (9-20) mg/dL Creatinine (0.66-1.25) mg/dL Estimated GFR ML/MIN Glucose (74-106) mg/dL POC Glucometer 76 80 58 L (74 to 106) mg/dL Hemoglobin A1c (4.5-6.0) % Calcium (8.4-10.2) mg/dL Magnesium (1.6-2.3) mg/dL Total Bilirubin (0.2-1.3) mg/dL AST (17-59) U/L ALT (0-50) U/L Alkaline Phosphatase (38-126) U/L Serum Total Protein (6.3-8.2) g/dL Albumin (3.5-5.0) g/dL 08/17/23 08/17/23 08/17/23 Range/Units 17:12 20:33 21:18 WBC (4.23-9.07) x10^3/uL RBC (4.63-6.08) x10^6/uL Hgb (13.7-17.5) g/dL Hct (40.1-51.0) % MCV (79.0-92.2) fL MCH (25.7-32.2) pg MCHC (32.3-36.5) g/dL RDW (11.6-14.4) % Plt Count (163-337) x10^3/uL MPV (9.4-12.4) fL Gran % (34.0-67.9) % Immature Gran % (Auto) (0.001-0.429) % Nucleat RBC Rel Count (0.00-0.2) % Eos # (Auto) (0.04-0.54) x10^3/uL Immature Gran # (Auto) (0.001-0.031) x10^3u/L Absolute Lymphs (auto) (1.32-3.57) x10^3/uL Absolute Monos (auto) (0.30-0.82) x10^3/uL Absolute Nucleated RBC (0.00-0.012) x10^3u/L Lymphocytes % (21.8-53.1) % Monocytes % (5.3-12.2) % Eosinophils % (0.8-7.0) % Basophils % (0.2-1.2) % Absolute Granulocytes (1.78-5.38) x10^3/uL Basophils # (0.01-0.08) x10^3/uL Sodium (135-145) mmol/L Potassium (3.5-5.1) mmol/L Chloride (98-107) mmol/L Carbon Dioxide (22-30) mmol/L Anion Gap (5-15) MEQ/L BUN (9-20) mg/dL Creatinine (0.66-1.25) mg/dL Estimated GFR ML/MIN Glucose (74-106) mg/dL POC Glucometer 94 63 L 72 L (74 to 106) mg/dL Hemoglobin A1c (4.5-6.0) % Calcium (8.4-10.2) mg/dL Magnesium (1.6-2.3) mg/dL Total Bilirubin (0.2-1.3) mg/dL AST (17-59) U/L ALT (0-50) U/L Alkaline Phosphatase (38-126) U/L Serum Total Protein (6.3-8.2) g/dL Albumin (3.5-5.0) g/dL 08/17/23 08/18/23 08/18/23 Range/Units 22:10 00:10 01:56 WBC (4.23-9.07) x10^3/uL RBC (4.63-6.08) x10^6/uL Hgb (13.7-17.5) g/dL Hct (40.1-51.0) % MCV (79.0-92.2) fL MCH (25.7-32.2) pg MCHC (32.3-36.5) g/dL RDW (11.6-14.4) % Plt Count (163-337) x10^3/uL MPV (9.4-12.4) fL Gran % (34.0-67.9) % Immature Gran % (Auto) (0.001-0.429) % Nucleat RBC Rel Count (0.00-0.2) % Eos # (Auto) (0.04-0.54) x10^3/uL Immature Gran # (Auto) (0.001-0.031) x10^3u/L Absolute Lymphs (auto) (1.32-3.57) x10^3/uL Absolute Monos (auto) (0.30-0.82) x10^3/uL Absolute Nucleated RBC (0.00-0.012) x10^3u/L Lymphocytes % (21.8-53.1) % Monocytes % (5.3-12.2) % Eosinophils % (0.8-7.0) % Basophils % (0.2-1.2) % Absolute Granulocytes (1.78-5.38) x10^3/uL Basophils # (0.01-0.08) x10^3/uL Sodium (135-145) mmol/L Potassium (3.5-5.1) mmol/L Chloride (98-107) mmol/L Carbon Dioxide (22-30) mmol/L Anion Gap (5-15) MEQ/L BUN (9-20) mg/dL Creatinine (0.66-1.25) mg/dL Estimated GFR ML/MIN Glucose (74-106) mg/dL POC Glucometer 121 H 76 79 (74 to 106) mg/dL Hemoglobin A1c (4.5-6.0) % Calcium (8.4-10.2) mg/dL Magnesium (1.6-2.3) mg/dL Total Bilirubin (0.2-1.3) mg/dL AST (17-59) U/L ALT (0-50) U/L Alkaline Phosphatase (38-126) U/L Serum Total Protein (6.3-8.2) g/dL Albumin (3.5-5.0) g/dL 08/18/23 Range/Units 04:25 WBC (4.23-9.07) x10^3/uL RBC (4.63-6.08) x10^6/uL Hgb (13.7-17.5) g/dL Hct (40.1-51.0) % MCV (79.0-92.2) fL MCH (25.7-32.2) pg MCHC (32.3-36.5) g/dL RDW (11.6-14.4) % Plt Count (163-337) x10^3/uL MPV (9.4-12.4) fL Gran % (34.0-67.9) % Immature Gran % (Auto) (0.001-0.429) % Nucleat RBC Rel Count (0.00-0.2) % Eos # (Auto) (0.04-0.54) x10^3/uL Immature Gran # (Auto) (0.001-0.031) x10^3u/L Absolute Lymphs (auto) (1.32-3.57) x10^3/uL Absolute Monos (auto) (0.30-0.82) x10^3/uL Absolute Nucleated RBC (0.00-0.012) x10^3u/L Lymphocytes % (21.8-53.1) % Monocytes % (5.3-12.2) % Eosinophils % (0.8-7.0) % Basophils % (0.2-1.2) % Absolute Granulocytes (1.78-5.38) x10^3/uL Basophils # (0.01-0.08) x10^3/uL Sodium (135-145) mmol/L Potassium (3.5-5.1) mmol/L Chloride (98-107) mmol/L Carbon Dioxide (22-30) mmol/L Anion Gap (5-15) MEQ/L BUN (9-20) mg/dL Creatinine (0.66-1.25) mg/dL Estimated GFR ML/MIN Glucose (74-106) mg/dL POC Glucometer 82 (74 to 106) mg/dL Hemoglobin A1c (4.5-6.0) % Calcium (8.4-10.2) mg/dL Magnesium (1.6-2.3) mg/dL Total Bilirubin (0.2-1.3) mg/dL AST (17-59) U/L ALT (0-50) U/L Alkaline Phosphatase (38-126) U/L Serum Total Protein (6.3-8.2) g/dL Albumin (3.5-5.0) g/dL Radiology Exams: Radiology Procedures Category Date Time Status ABDOMEN 2 VIEW DAILY Exams 08/17/23 05:30 Completed ABDOMEN 2 VIEW DAILY Exams 08/18/23 05:30 Ordered ABDOMEN 2 VIEW DAILY Exams 08/19/23 05:30 Ordered CHEST 1 VIEW (PORTABLE) Stat Exams 08/16/23 22:50 Completed KUB DAILY Exams 08/18/23 05:30 Ordered KUB DAILY Exams 08/19/23 05:30 Ordered <JUNE RICARDO - Last Filed: 08/18/23 09:48> Vital Signs: Vital Signs - 24 hr Temp Pulse Resp BP Pulse Ox 08/18/23 16:00 97.5 F 55 L 19 160/70 92 L 08/18/23 11:43 99.3 F 60 18 160/71 91 L 08/18/23 08:00 98.7 F 64 18 165/70 87 L 08/18/23 04:00 99.1 F 61 18 138/65 96 08/17/23 23:41 99.3 F 62 17 144/66 94 L Pain Assessment - Last Documented Pain Intensity 0 Pain Scale Used 0-10 Pain Scale Intake and Output: Intake & Output 08/16/23 08/17/23 08/18/23 08/19/23 11:59 11:59 11:59 11:59 Intake Total 306 2230 2683 900 Output Total 1150 3450 1500 Balance -844 -1220 1183 900 Weight 89.6 kg 89.2 kg 91.2 kg Lab Results: Lab Results-Last 24 Hours 08/16/23 08/17/23 08/17/23 Range/Units 15:35 20:33 21:18 WBC (4.23-9.07) x10^3/uL RBC (4.63-6.08) x10^6/uL Hgb (13.7-17.5) g/dL Hct (40.1-51.0) % MCV (79.0-92.2) fL MCH (25.7-32.2) pg MCHC (32.3-36.5) g/dL RDW (11.6-14.4) % Plt Count (163-337) x10^3/uL MPV (9.4-12.4) fL Gran % (34.0-67.9) % Immature Gran % (Auto) (0.001-0.429) % Nucleat RBC Rel Count (0.00-0.2) % Eos # (Auto) (0.04-0.54) x10^3/uL Immature Gran # (Auto) (0.001-0.031) x10^3u/L Absolute Lymphs (auto) (1.32-3.57) x10^3/uL Absolute Monos (auto) (0.30-0.82) x10^3/uL Absolute Nucleated RBC (0.00-0.012) x10^3u/L Lymphocytes % (21.8-53.1) % Monocytes % (5.3-12.2) % Eosinophils % (0.8-7.0) % Basophils % (0.2-1.2) % Absolute Granulocytes (1.78-5.38) x10^3/uL Basophils # (0.01-0.08) x10^3/uL Sodium (135-145) mmol/L Potassium (3.5-5.1) mmol/L Chloride (98-107) mmol/L Carbon Dioxide (22-30) mmol/L Anion Gap (5-15) MEQ/L BUN (9-20) mg/dL Creatinine (0.66-1.25) mg/dL Estimated GFR ML/MIN Glucose (74-106) mg/dL POC Glucometer 63 L 72 L (74 to 106) mg/dL Calcium (8.4-10.2) mg/dL Magnesium (1.6-2.3) mg/dL Total Bilirubin (0.2-1.3) mg/dL AST (17-59) U/L ALT (0-50) U/L Alkaline Phosphatase (38-126) U/L Serum Total Protein (6.3-8.2) g/dL Albumin (3.5-5.0) g/dL C. difficile Screen NEGATIVE (NEGATIVE) C.difficile 027-NAP1-B1 PRESUMPTIVE NEGATIVE (NEGATIVE) 08/17/23 08/18/23 08/18/23 Range/Units 22:10 00:10 01:56 WBC (4.23-9.07) x10^3/uL RBC (4.63-6.08) x10^6/uL Hgb (13.7-17.5) g/dL Hct (40.1-51.0) % MCV (79.0-92.2) fL MCH (25.7-32.2) pg MCHC (32.3-36.5) g/dL RDW (11.6-14.4) % Plt Count (163-337) x10^3/uL MPV (9.4-12.4) fL Gran % (34.0-67.9) % Immature Gran % (Auto) (0.001-0.429) % Nucleat RBC Rel Count (0.00-0.2) % Eos # (Auto) (0.04-0.54) x10^3/uL Immature Gran # (Auto) (0.001-0.031) x10^3u/L Absolute Lymphs (auto) (1.32-3.57) x10^3/uL Absolute Monos (auto) (0.30-0.82) x10^3/uL Absolute Nucleated RBC (0.00-0.012) x10^3u/L Lymphocytes % (21.8-53.1) % Monocytes % (5.3-12.2) % Eosinophils % (0.8-7.0) % Basophils % (0.2-1.2) % Absolute Granulocytes (1.78-5.38) x10^3/uL Basophils # (0.01-0.08) x10^3/uL Sodium (135-145) mmol/L Potassium (3.5-5.1) mmol/L Chloride (98-107) mmol/L Carbon Dioxide (22-30) mmol/L Anion Gap (5-15) MEQ/L BUN (9-20) mg/dL Creatinine (0.66-1.25) mg/dL Estimated GFR ML/MIN Glucose (74-106) mg/dL POC Glucometer 121 H 76 79 (74 to 106) mg/dL Calcium (8.4-10.2) mg/dL Magnesium (1.6-2.3) mg/dL Total Bilirubin (0.2-1.3) mg/dL AST (17-59) U/L ALT (0-50) U/L Alkaline Phosphatase (38-126) U/L Serum Total Protein (6.3-8.2) g/dL Albumin (3.5-5.0) g/dL C. difficile Screen (NEGATIVE) C.difficile 027-NAP1-B1 (NEGATIVE) 08/18/23 08/18/23 08/18/23 Range/Units 04:25 05:45 05:45 WBC 11.1 H (4.23-9.07) x10^3/uL RBC 3.67 L (4.63-6.08) x10^6/uL Hgb 12.1 L (13.7-17.5) g/dL Hct 36.6 L (40.1-51.0) % MCV 99.7 H (79.0-92.2) fL MCH 33.0 H (25.7-32.2) pg MCHC 33.1 (32.3-36.5) g/dL RDW 14.7 H (11.6-14.4) % Plt Count 223 (163-337) x10^3/uL MPV 9.0 L (9.4-12.4) fL Gran % 73.5 H (34.0-67.9) % Immature Gran % (Auto) 0.5 H (0.001-0.429) % Nucleat RBC Rel Count 0.0 (0.00-0.2) % Eos # (Auto) 0.23 (0.04-0.54) x10^3/uL Immature Gran # (Auto) 0.05 H (0.001-0.031) x10^3u/L Absolute Lymphs (auto) 1.41 (1.32-3.57) x10^3/uL Absolute Monos (auto) 1.19 H (0.30-0.82) x10^3/uL Absolute Nucleated RBC 0.00 (0.00-0.012) x10^3u/L Lymphocytes % 12.7 L (21.8-53.1) % Monocytes % 10.7 (5.3-12.2) % Eosinophils % 2.1 (0.8-7.0) % Basophils % 0.5 (0.2-1.2) % Absolute Granulocytes 8.13 H (1.78-5.38) x10^3/uL Basophils # 0.06 (0.01-0.08) x10^3/uL Sodium 139 (135-145) mmol/L Potassium 3.4 L (3.5-5.1) mmol/L Chloride 108 H (98-107) mmol/L Carbon Dioxide 25 (22-30) mmol/L Anion Gap 9.6 (5-15) MEQ/L BUN 15 (9-20) mg/dL Creatinine 0.76 (0.66-1.25) mg/dL Estimated GFR 92.0 ML/MIN Glucose 81 (74-106) mg/dL POC Glucometer 82 (74 to 106) mg/dL Calcium 7.7 L (8.4-10.2) mg/dL Magnesium 2.1 (1.6-2.3) mg/dL Total Bilirubin 0.70 (0.2-1.3) mg/dL AST 35 (17-59) U/L ALT 26 (0-50) U/L Alkaline Phosphatase 58 (38-126) U/L Serum Total Protein 5.5 L (6.3-8.2) g/dL Albumin 3.0 L (3.5-5.0) g/dL C. difficile Screen (NEGATIVE) C.difficile 027-NAP1-B1 (NEGATIVE) 08/18/23 08/18/23 08/18/23 Range/Units 07:38 11:13 12:20 WBC (4.23-9.07) x10^3/uL RBC (4.63-6.08) x10^6/uL Hgb (13.7-17.5) g/dL Hct (40.1-51.0) % MCV (79.0-92.2) fL MCH (25.7-32.2) pg MCHC (32.3-36.5) g/dL RDW (11.6-14.4) % Plt Count (163-337) x10^3/uL MPV (9.4-12.4) fL Gran % (34.0-67.9) % Immature Gran % (Auto) (0.001-0.429) % Nucleat RBC Rel Count (0.00-0.2) % Eos # (Auto) (0.04-0.54) x10^3/uL Immature Gran # (Auto) (0.001-0.031) x10^3u/L Absolute Lymphs (auto) (1.32-3.57) x10^3/uL Absolute Monos (auto) (0.30-0.82) x10^3/uL Absolute Nucleated RBC (0.00-0.012) x10^3u/L Lymphocytes % (21.8-53.1) % Monocytes % (5.3-12.2) % Eosinophils % (0.8-7.0) % Basophils % (0.2-1.2) % Absolute Granulocytes (1.78-5.38) x10^3/uL Basophils # (0.01-0.08) x10^3/uL Sodium (135-145) mmol/L Potassium 3.3 L (3.5-5.1) mmol/L Chloride (98-107) mmol/L Carbon Dioxide (22-30) mmol/L Anion Gap (5-15) MEQ/L BUN (9-20) mg/dL Creatinine (0.66-1.25) mg/dL Estimated GFR ML/MIN Glucose (74-106) mg/dL POC Glucometer 73 L 72 L (74 to 106) mg/dL Calcium (8.4-10.2) mg/dL Magnesium (1.6-2.3) mg/dL Total Bilirubin (0.2-1.3) mg/dL AST (17-59) U/L ALT (0-50) U/L Alkaline Phosphatase (38-126) U/L Serum Total Protein (6.3-8.2) g/dL Albumin (3.5-5.0) g/dL C. difficile Screen (NEGATIVE) C.difficile 027-NAP1-B1 (NEGATIVE) 08/18/23 08/18/23 08/18/23 Range/Units 15:51 16:55 17:46 WBC (4.23-9.07) x10^3/uL RBC (4.63-6.08) x10^6/uL Hgb (13.7-17.5) g/dL Hct (40.1-51.0) % MCV (79.0-92.2) fL MCH (25.7-32.2) pg MCHC (32.3-36.5) g/dL RDW (11.6-14.4) % Plt Count (163-337) x10^3/uL MPV (9.4-12.4) fL Gran % (34.0-67.9) % Immature Gran % (Auto) (0.001-0.429) % Nucleat RBC Rel Count (0.00-0.2) % Eos # (Auto) (0.04-0.54) x10^3/uL Immature Gran # (Auto) (0.001-0.031) x10^3u/L Absolute Lymphs (auto) (1.32-3.57) x10^3/uL Absolute Monos (auto) (0.30-0.82) x10^3/uL Absolute Nucleated RBC (0.00-0.012) x10^3u/L Lymphocytes % (21.8-53.1) % Monocytes % (5.3-12.2) % Eosinophils % (0.8-7.0) % Basophils % (0.2-1.2) % Absolute Granulocytes (1.78-5.38) x10^3/uL Basophils # (0.01-0.08) x10^3/uL Sodium (135-145) mmol/L Potassium 4.0 D (3.5-5.1) mmol/L Chloride (98-107) mmol/L Carbon Dioxide (22-30) mmol/L Anion Gap (5-15) MEQ/L BUN (9-20) mg/dL Creatinine (0.66-1.25) mg/dL Estimated GFR ML/MIN Glucose (74-106) mg/dL POC Glucometer 71 L 111 H (74 to 106) mg/dL Calcium (8.4-10.2) mg/dL Magnesium (1.6-2.3) mg/dL Total Bilirubin (0.2-1.3) mg/dL AST (17-59) U/L ALT (0-50) U/L Alkaline Phosphatase (38-126) U/L Serum Total Protein (6.3-8.2) g/dL Albumin (3.5-5.0) g/dL C. difficile Screen (NEGATIVE) C.difficile [id number] (NEGATIVE) Radiology Exams: Radiology Procedures Category Date Time Status ABDOMEN 2 VIEW DAILY Exams 08/17/23 05:30 Completed ABDOMEN 2 VIEW DAILY Exams 08/18/23 05:30 Completed ABDOMEN 2 VIEW DAILY Exams 08/19/23 05:30 Stop Req CHEST 1 VIEW (PORTABLE) Stat Exams 08/16/23 22:50 Completed KUB DAILY Exams 08/19/23 05:30 Stop Req <ELLIE ECKERT - Last Filed: 08/18/23 19:49> Assessment/Plan (1) Small bowel obstruction Current Visit: Yes Status: Acute Assessment & Plan: -CT demonstrates small bowel obstruction with distended jejunal loop and collapse of ileum and colonic loops -Surgery consulted- NG placed with good output -NPO/IVF -Monitor renal/lytes daily 08/16: -Surgery following- agree with plan to continue NG, monitor with KUB, NPO with ice chips/meds -continue IVF -Monitor renal/lytes 08/17: -Reviewed surgery note, agree with plan for conservative management with bowel rest/NG/ abdominal xray series Code(s): K56.609 - UNSP INTESTNL OBST, UNSP TO PARTIAL VERSUS COMPLETE OBST (2) Pneumonia Current Visit: Yes Status: Acute Assessment & Plan: -CT chest with diffuse patchy opacities consistent with pneumonia -Zosyn given in ED, will continue - patient failed OP doxycycline/zithromax -Supplemental oxygen with goal spo2 > 92% -MRSA -Sputum cult -blood cultures pending -resp viral panel -RT eval- NEBs/INH 08/16: -MRSA negative -Afebrile -Blood/sputum culture pending -Continue Zosyn 08/17 -Continue zosyn -Blood and sputum pending Code(s): J18.9 - PNEUMONIA, UNSPECIFIED ORGANISM (3) Essential hypertension Current Visit: No Status: Acute Assessment & Plan: -stable, continue home meds Code(s): I10 - ESSENTIAL (PRIMARY) HYPERTENSION (4) Hyperlipidemia Current Visit: No Status: Acute Assessment & Plan: -continue statin Code(s): E78.5 - HYPERLIPIDEMIA, UNSPECIFIED (5) Hypothyroid Current Visit: No Status: Acute Assessment & Plan: -continue synthroid Code(s): E03.9 - HYPOTHYROIDISM, UNSPECIFIED (6) Afib Current Visit: Yes Status: Acute Assessment & Plan: -Continue metoprolol, may need to hold Eliquis if surgery is indicated -Pacemaker #Hypoglycemia -NPO status -Accuchecks -D5NS VTE: Bilateral SCD PPI: protonix Dispo; 2-3 days Code: Full Code(s): K56.609 - UNSP INTESTNL OBST, UNSP TO PARTIAL VERSUS COMPLETE OBST (2) Pneumonia Current Visit: Yes Status: Acute Code(s): J18.9 - PNEUMONIA, UNSPECIFIED ORGANISM (3) Essential hypertension Current Visit: No Status: Acute Code(s): I10 - ESSENTIAL (PRIMARY) HYPERTENSION (4) Hyperlipidemia Current Visit: No Status: Acute Code(s): E78.5 - HYPERLIPIDEMIA, UNSPECIFIED (5) Hypothyroid Current Visit: No Status: Acute Code(s): E03.9 - HYPOTHYROIDISM, UNSPECIFIED (6) Afib Current Visit: Yes Status: Acute Code(s): I48.91 - UNSPECIFIED ATRIAL FIBRILLATION (7) Hypoglycemia Current Visit: Yes Status: Acute Code(s): E16.2 - HYPOGLYCEMIA, UNSPECIFIED <JUNE RICARDO - Last Filed: 08/18/23 09:48> ELSA Encounter - ELSA Encounter Attestation ELSA Encounter Attestation: "DAT Moss andhavediscussed pertinent aspects of their care with June Kiser agree with the history, physical exam (any modifications based on my personal exam will be noted below), assessment, and plan as outlined in original note. Please see immediately below for my summary of findings and additional assessment and plan along with any meaningful corrections/explanations to the Subjective/Objective portions of the ELSA note will be noted." My portion of the encounter took place via telemedicine. -Patient denied any N/V or abdominal pain. NG tube output has decreased. Would clamp if okay with surgery. Patient also had a BM yesterday after he was given a suppository and he is passing gas. Serial KUB showing improvement. Continue conservation management as directed by surgery. <ELLIE ECKERT - Last Filed: 08/18/23 19:49>
[2023-08-18 06:13] LABS: ANION GAP 9.6 MEQ/L (5-15); BILIRUBIN,TOTAL 0.7 mg/dL (0.2-1.3); Calcium 7.7 mg/dL (8.4-10.2); Creatinine 1 0.76 mg/dL (0.66-1.25); MAGNESIUM 2.1 mg/dL (1.6-2.3); Potassium 3.4 mmol/L (3.5-5.1); Total Protein 5.5 g/dL (6.3-8.2)
[2023-08-18] MEDS ORDERED: D50W 50 ml Abboject IV PRN (07:34)
--- NOTE | 2023-08-18 07:43 | XRAY ---
CLINICAL HISTORY: small bowel obstruction COMPARISON: Prior x-ray dated 08/17/2023 . TECHNIQUE: X-rays of the abdomen were performed in multiple AP views in supine and upright positions. FINDINGS: Regression of the previously noted multiple fluid-gas levels, now the small bowel seen distended, with no obvious air-fluid leveling. Distended fecal-loaded large bowel loops are seen in the abdomen. No definite evidence of free air was noted within the abdomen IMPRESSION: 1. Regression of the previously noted multiple fluid-gas levels, now the small bowel seen distended, with no obvious air-fluid leveling. 2. Clinical correlation and follow-up are needed. Electronically Signed by: Tressa Chowdhury MD. (08/18/2023 07:38:29 EDT)
[2023-08-18] MEDS: K-LYTE PO SCH (13:55)
[2023-08-18 16:23] LABS: 027 TOX PROD PRESUMPTIVE NEGATIVE (NEGATIVE); TOXIGENIC C. DIFF ORG NEGATIVE (NEGATIVE)
[2023-08-18] MEDS: Glutose 15 GM ORAL GEL PO PRN (17:01)
[2023-08-19 05:22] LABS: Absolute Neutrophil Ct (ANC) 6.41 x10^3/uL (1.78-5.38); BASOPHIL % 0.7 % (0.2-1.2); Basophil (Absolute #) 0.06 x10^3/uL (0.01-0.08); Eosinophil % 3.2 % (0.8-7.0); Eosinophil (Absolute #) 0.29 x10^3/uL (0.04-0.54); Hematocrit 39.7 % (40.1-51.0); Hemoglobin 13.3 g/dL (13.7-17.5); IMMATURE GRAN # 0.05 x10^3u/L (0.001-0.031); IMMATURE GRAN % 0.5 % (0.001-0.429); Lymphocyte (Absolute #) 1.36 x10^3/uL (1.32-3.57); Lymphocytes % 14.9 % (21.8-53.1); Mean Cell Volume 99.5 fL (79.0-92.2); Mean Corpuscular Hemoglobin 33.3 pg (25.7-32.2); Mean Corpuscular Hgb Concent. 33.5 g/dL (32.3-36.5); Mean Platelet Volume 9.4 fL (9.4-12.4); Monocyte (Absolute #) 0.95 x10^3/uL (0.30-0.82); Monocytes % 10.4 % (5.3-12.2); Neutrophil % 70.3 % (34.0-67.9); Platelet Count 238 x10^3/uL (163-337); Red Blood Count 3.99 x10^6/uL (4.63-6.08); Red Cell Distribution Width 14.5 % (11.6-14.4); White Blood Count 9.1 x10^3/uL (4.23-9.07)
[2023-08-19 05:43] LABS: ALBUMIN 3.4 g/dL (3.5-5.0); ANION GAP 8.7 MEQ/L (5-15); BILIRUBIN,TOTAL 0.8 mg/dL (0.2-1.3); Calcium 8.3 mg/dL (8.4-10.2); Creatinine 1 0.82 mg/dL (0.66-1.25); EST GLOMERULAR FILTRATION RATE 89.9 ML/MIN; MAGNESIUM 2.2 mg/dL (1.6-2.3); Total Protein 6.2 g/dL (6.3-8.2)
[2023-08-19 08:05] VITALS: RESP 16
--- NOTE | 2023-08-19 08:59 | PCM.DS ---
Discharge Summary Date of Admission: 08/16/23 09:05 Date of Discharge: 08/19/23 Admitting Physician: ELLIE ECKERT MD Consults: Consults on Case 08/16/23 09:31 Consult Surgery ROUTINE Primary Care Provider: AMRITA SONG Allergies Allergies No Known Drug Allergies Allergy (Verified 08/16/23 09:37) Hospital Summary - Hospital Course Hospital Course: 08/19/23 HPI: is a 78 year old male with a pmhx of HTN, HLD, AFIB (Eliquis), pacemaker, CAD with 3 cardiac stents, and hypothyroidism. He presented to ED 08/16/23 after experiencing severe abdominal pain/distention, eructation, and nausea. Patient reports that symptoms started 08/15/23. He has been taking doxycycline/steroids/zithromax for pneumonia diagnosed two weeks ago and thought symptoms were related to the medications. Additional symptoms of productive cough with yellow sputum and shortness of breath with the onset of two weeks ago. No fever. Last BM 08/15/23. No flatus. Upon exam HOB at 45 degrees, abdomen is distended with hyperactive bowel sounds x 4 quads. NG placed with 500mls of brown gastric drainage. Patient does have a history of Hernia repair. CT abdomen/pelvis consistent with small bowel obstruction with distended jejunal loop and collapse of ileum and colonic loops. . CT chest showing bilateral lower lobe opacification - likely inflammatory/infectious. Labs remarkable for leukocytosis with WBC elevated at 15.8. Patient given Fentanyl, zofran, Zosyn and IVF in ED. Dr. Quezada consulted in ED feels this is ileus vs gastritis/enteritis r/t antibiotics vs obstruction- advised NG tube,series films - possible small bowel follow through. Admission for pneumonia/ small bowel obstruction. Zosyn for pneumonia - surgery eval with recs for - no surgical intervention -treat conservatively -recs to continue holding eliquis (lovenox per surg). Was keep NPO for 2 days and yesteday evening started on clear liquid diet per surgery. Advanced to soft diet this morning and tolerating well w/o concern. Will advance to regular diet at lunch. If continues to do well will d/c later this eveving. Pt feels he is ready to go home. He continues to have a bit of a cough with abd. muscle pain from coughing. Other than that he reports he feels fine. He denies CP, SOB, Abd. pain, N/V/D. - Vitals & Intake/Output Vital Signs: Vital Signs Temperature 97.7 F 08/19/23 08:00 Pulse Rate 67 08/19/23 08:00 Respiratory Rate 16 08/19/23 08:00 Blood Pressure 155/67 08/19/23 08:00 O2 Sat by Pulse Oximetry 99 08/19/23 08:00 Intake & Output: Intake & Output 08/16/23 08/17/23 08/18/23 08/19/23 11:59 11:59 11:59 11:59 Intake Total 306 2230 2683 2586 Output Total 1150 3450 1500 1 Balance -844 -1220 1183 2585 Weight 89.6 kg 89.2 kg 91.2 kg - Lab Result Diagrams: 08/19/23 04:50 08/19/23 04:50 Lab Results-Last 24 Hrs: Lab Results-Last 24 Hours 08/16/23 08/18/23 08/18/23 Range/Units 15:35 11:13 12:20 WBC (4.23-9.07) x10^3/uL RBC (4.63-6.08) x10^6/uL Hgb (13.7-17.5) g/dL Hct (40.1-51.0) % MCV (79.0-92.2) fL MCH (25.7-32.2) pg MCHC (32.3-36.5) g/dL RDW (11.6-14.4) % Plt Count (163-337) x10^3/uL MPV (9.4-12.4) fL Gran % (34.0-67.9) % Immature Gran % (Auto) (0.001-0.429) % Nucleat RBC Rel Count (0.00-0.2) % Eos # (Auto) (0.04-0.54) x10^3/uL Immature Gran # (Auto) (0.001-0.031) x10^3u/L Absolute Lymphs (auto) (1.32-3.57) x10^3/uL Absolute Monos (auto) (0.30-0.82) x10^3/uL Absolute Nucleated RBC (0.00-0.012) x10^3u/L Lymphocytes % (21.8-53.1) % Monocytes % (5.3-12.2) % Eosinophils % (0.8-7.0) % Basophils % (0.2-1.2) % Absolute Granulocytes (1.78-5.38) x10^3/uL Basophils # (0.01-0.08) x10^3/uL Sodium (135-145) mmol/L Potassium 3.3 L (3.5-5.1) mmol/L Chloride (98-107) mmol/L Carbon Dioxide (22-30) mmol/L Anion Gap (5-15) MEQ/L BUN (9-20) mg/dL Creatinine (0.66-1.25) mg/dL Estimated GFR ML/MIN Glucose (74-106) mg/dL POC Glucometer 72 L (74 to 106) mg/dL Calcium (8.4-10.2) mg/dL Magnesium (1.6-2.3) mg/dL Total Bilirubin (0.2-1.3) mg/dL AST (17-59) U/L ALT (0-50) U/L Alkaline Phosphatase (38-126) U/L Serum Total Protein (6.3-8.2) g/dL Albumin (3.5-5.0) g/dL C. difficile Screen NEGATIVE (NEGATIVE) C.difficile 027-NAP1-B1 PRESUMPTIVE NEGATIVE (NEGATIVE) 08/18/23 08/18/23 08/18/23 Range/Units 15:51 16:55 17:46 WBC (4.23-9.07) x10^3/uL RBC (4.63-6.08) x10^6/uL Hgb (13.7-17.5) g/dL Hct (40.1-51.0) % MCV (79.0-92.2) fL MCH (25.7-32.2) pg MCHC (32.3-36.5) g/dL RDW (11.6-14.4) % Plt Count (163-337) x10^3/uL MPV (9.4-12.4) fL Gran % (34.0-67.9) % Immature Gran % (Auto) (0.001-0.429) % Nucleat RBC Rel Count (0.00-0.2) % Eos # (Auto) (0.04-0.54) x10^3/uL Immature Gran # (Auto) (0.001-0.031) x10^3u/L Absolute Lymphs (auto) (1.32-3.57) x10^3/uL Absolute Monos (auto) (0.30-0.82) x10^3/uL Absolute Nucleated RBC (0.00-0.012) x10^3u/L Lymphocytes % (21.8-53.1) % Monocytes % (5.3-12.2) % Eosinophils % (0.8-7.0) % Basophils % (0.2-1.2) % Absolute Granulocytes (1.78-5.38) x10^3/uL Basophils # (0.01-0.08) x10^3/uL Sodium (135-145) mmol/L Potassium 4.0 D (3.5-5.1) mmol/L Chloride (98-107) mmol/L Carbon Dioxide (22-30) mmol/L Anion Gap (5-15) MEQ/L BUN (9-20) mg/dL Creatinine (0.66-1.25) mg/dL Estimated GFR ML/MIN Glucose (74-106) mg/dL POC Glucometer 71 L 111 H (74 to 106) mg/dL Calcium (8.4-10.2) mg/dL Magnesium (1.6-2.3) mg/dL Total Bilirubin (0.2-1.3) mg/dL AST (17-59) U/L ALT (0-50) U/L Alkaline Phosphatase (38-126) U/L Serum Total Protein (6.3-8.2) g/dL Albumin (3.5-5.0) g/dL C. difficile Screen (NEGATIVE) C.difficile 027-NAP1-B1 (NEGATIVE) 08/18/23 08/19/23 08/19/23 Range/Units 20:16 00:05 04:50 WBC 9.1 H (4.23-9.07) x10^3/uL RBC 3.99 L (4.63-6.08) x10^6/uL Hgb 13.3 L (13.7-17.5) g/dL Hct 39.7 L (40.1-51.0) % MCV 99.5 H (79.0-92.2) fL MCH 33.3 H (25.7-32.2) pg MCHC 33.5 (32.3-36.5) g/dL RDW 14.5 H (11.6-14.4) % Plt Count 238 (163-337) x10^3/uL MPV 9.4 (9.4-12.4) fL Gran % 70.3 H (34.0-67.9) % Immature Gran % (Auto) 0.5 H (0.001-0.429) % Nucleat RBC Rel Count 0.0 (0.00-0.2) % Eos # (Auto) 0.29 (0.04-0.54) x10^3/uL Immature Gran # (Auto) 0.05 H (0.001-0.031) x10^3u/L Absolute Lymphs (auto) 1.36 (1.32-3.57) x10^3/uL Absolute Monos (auto) 0.95 H (0.30-0.82) x10^3/uL Absolute Nucleated RBC 0.00 (0.00-0.012) x10^3u/L Lymphocytes % 14.9 L (21.8-53.1) % Monocytes % 10.4 (5.3-12.2) % Eosinophils % 3.2 (0.8-7.0) % Basophils % 0.7 (0.2-1.2) % Absolute Granulocytes 6.41 H (1.78-5.38) x10^3/uL Basophils # 0.06 (0.01-0.08) x10^3/uL Sodium (135-145) mmol/L Potassium (3.5-5.1) mmol/L Chloride (98-107) mmol/L Carbon Dioxide (22-30) mmol/L Anion Gap (5-15) MEQ/L BUN (9-20) mg/dL Creatinine (0.66-1.25) mg/dL Estimated GFR ML/MIN Glucose (74-106) mg/dL POC Glucometer 108 H 90 (74 to 106) mg/dL Calcium (8.4-10.2) mg/dL Magnesium (1.6-2.3) mg/dL Total Bilirubin (0.2-1.3) mg/dL AST (17-59) U/L ALT (0-50) U/L Alkaline Phosphatase (38-126) U/L Serum Total Protein (6.3-8.2) g/dL Albumin (3.5-5.0) g/dL C. difficile Screen (NEGATIVE) C.difficile 027-NAP1-B1 (NEGATIVE) 08/19/23 08/19/23 08/19/23 Range/Units 04:50 04:50 07:32 WBC (4.23-9.07) x10^3/uL RBC (4.63-6.08) x10^6/uL Hgb (13.7-17.5) g/dL Hct (40.1-51.0) % MCV (79.0-92.2) fL MCH (25.7-32.2) pg MCHC (32.3-36.5) g/dL RDW (11.6-14.4) % Plt Count (163-337) x10^3/uL MPV (9.4-12.4) fL Gran % (34.0-67.9) % Immature Gran % (Auto) (0.001-0.429) % Nucleat RBC Rel Count (0.00-0.2) % Eos # (Auto) (0.04-0.54) x10^3/uL Immature Gran # (Auto) (0.001-0.031) x10^3u/L Absolute Lymphs (auto) (1.32-3.57) x10^3/uL Absolute Monos (auto) (0.30-0.82) x10^3/uL Absolute Nucleated RBC (0.00-0.012) x10^3u/L Lymphocytes % (21.8-53.1) % Monocytes % (5.3-12.2) % Eosinophils % (0.8-7.0) % Basophils % (0.2-1.2) % Absolute Granulocytes (1.78-5.38) x10^3/uL Basophils # (0.01-0.08) x10^3/uL Sodium 140 (135-145) mmol/L Potassium 4.0 (3.5-5.1) mmol/L Chloride 106 (98-107) mmol/L Carbon Dioxide 29 (22-30) mmol/L Anion Gap 8.7 (5-15) MEQ/L BUN 6 L (9-20) mg/dL Creatinine 0.82 (0.66-1.25) mg/dL Estimated GFR 89.9 ML/MIN Glucose 103 (74-106) mg/dL POC Glucometer 91 94 (74 to 106) mg/dL Calcium 8.3 L (8.4-10.2) mg/dL Magnesium 2.2 (1.6-2.3) mg/dL Total Bilirubin 0.80 (0.2-1.3) mg/dL AST 39 (17-59) U/L ALT 27 (0-50) U/L Alkaline Phosphatase 64 (38-126) U/L Serum Total Protein 6.2 L (6.3-8.2) g/dL Albumin 3.4 L (3.5-5.0) g/dL C. difficile Screen (NEGATIVE) C.difficile 027-NAP1-B1 (NEGATIVE) Micro Results-Entire Visit: Microbiology 08/16/23 07:33 Blood Culture - Preliminary Blood 08/16/23 07:25 Blood Culture - Preliminary Blood Accuchecks Date 08/19/23 Date 08/19/23 Date 08/19/23 Date 08/18/23 Date 08/18/23 Time 08:03 Time 00:05 - Radiology Exams Ordered Rad Exams-Entire Visit: Radiology Procedures Category Date Time Status ABDOMEN 2 VIEW DAILY Exams 08/18/23 05:30 Completed - Procedures and Test Procedures and Tests throughout Hospitalization: Therapy Orders & Screens 08/16/23 09:31 Oxygen Nasal Cannula 2 lpm Comment: Respiratory Therapy Consult ONCE Comment: Reason For Exam: 08/16/23 10:33 EKG REPEAT IN AM Comment: Diagnosis: SMALL BOWEL OBSTRUCTION, PNEUMONIA Discharge Exam General Appearance: no apparent distress, alert, obese Neurologic Exam: alert, oriented x 3, cooperative, normal mood/affect, nml cerebellar function, sensation nml, No motor deficits Eye Exam: PERRL, EOMI, eyes nml inspection Ears, Nose, Throat Exam: normal ENT inspection, pharynx normal, moist mucous membranes Neck Exam: normal inspection, non-tender, supple, full range of motion Respiratory Exam: normal breath sounds, lungs clear, No respiratory distress Cardiovascular Exam: regular rate/rhythm, normal heart sounds Gastrointestinal/Abdomen Exam: soft, other (muscle abd pain from coughing per pt.), No tenderness, No mass Male Genitalia Exam: deferred Rectal Exam: deferred Back Exam: normal inspection, normal range of motion, No CVA tenderness, No vertebral tenderness Extremity Exam: normal inspection, normal range of motion Skin Exam: normal color, warm, dry Final Diagnosis/Problem List - Final Discharge Diagnosis/Problem (1) Small bowel obstruction Current Visit: Yes Status: Acute Assessment & Plan: -08/15 CT demonstrates small bowel obstruction with distended jejunal loop and collapse of ileum and colonic loops -Surgery consulted- NG placed with good output - 08/17- NG removed that evening and clear liquid diet started per rec ommendation -08/18- pt eating soft diet this AM. Advance to regular diet at lunch. If doing well can d/c this afternoon. Code(s): K56.609 - UNSP INTESTNL OBST, UNSP TO PARTIAL VERSUS COMPLETE OBST (2) Pneumonia Current Visit: Yes Status: Acute Assessment & Plan: - Zosyn - RA 94% - continue OP antibiotics Code(s): J18.9 - PNEUMONIA, UNSPECIFIED ORGANISM (3) Afib Current Visit: Yes Status: Chronic Assessment & Plan: -Continue metoprolol, may need to hold Eliquis if surgery is indicated -Pacemaker Code(s): I48.91 - UNSPECIFIED ATRIAL FIBRILLATION (4) Hypoglycemia Current Visit: Yes Status: Resolved Assessment & Plan: - resolved - D5NS @ 50 ml/hr stopped - this was 2:2 being NPO - accuchecks ac/hs Code(s): E16.2 - HYPOGLYCEMIA, UNSPECIFIED (5) Essential hypertension Current Visit: No Status: Chronic Assessment & Plan: -stable, continue home meds Code(s): I10 - ESSENTIAL (PRIMARY) HYPERTENSION (6) Hyperlipidemia Current Visit: No Status: Chronic Assessment & Plan: - continue statin Code(s): E78.5 - HYPERLIPIDEMIA, UNSPECIFIED (7) Hypothyroid Current Visit: No Status: Chronic Assessment & Plan: -continue synthroid Code(s): E03.9 - HYPOTHYROIDISM, UNSPECIFIED - Discharge Discharge Date: 08/19/23 Disposition: Home, Self-Care Condition: Stable Prescriptions: New Benzonatate 100 mg PO TID PRN PRN 10 Days #30 cap PRN Reason: Cough Doxycycline Hyclate 100 mg [Vibramycin 100 MG] 100 mg PO BID 5 Days #10 tab Cefuroxime Axetil 500 mg [Ceftin 500 mg] 500 mg PO BID 5 Days #10 tablet Continue Evolocumab [Repatha Syringe] 140 mg SQ UD Levothyroxine Sodium 50 Mcg [Synthroid 50 Mcg] 50 mcg PO DAILY Simvastatin 20Mg [Zocor 20Mg] 20 mg PO DAILY Amiodarone HCl [Pacerone] 200 mg PO UD Lisinopril 5 mg [Zestril 5 MG] 5 mg PO DAILY Apixaban [Eliquis] 5 mg PO BID #0 Metoprolol Tartrate 50 mg [Lopressor 50 MG] 50 mg PO HS Instructions: Pneumonia, Adult (DC), Small Bowel Obstruction (DC) Follow up with: AMRITA SONG MD [Primary Care Provider] - 08/28/23 11:00 am EDINSON ESPINOSA [COURTESY STAFF] - 09/02/23 8:55 am ([facility])
[2023-08-19] MEDS: Cordarone 200 MG PO SCH (09:47)
[2023-08-19 12:14] VITALS: BP 157/68; PULSE 62; TEMP 98.2; O2SAT 96
== END 2023-08-19 13:36 | disposition home or self-care (01) | DRG 388 ==
LOC: ED 02:41 → MED SURG 09:05
PROVIDERS: ADMIT Internal Medicine; ATTEND Internal Medicine
DX: K56.609 Unspecified intestinal obstruction, unspecified as to partial versus complete obstruction (principal); J18.9 Pneumonia, unspecified organism; I48.91 Unspecified atrial fibrillation; E16.2 Hypoglycemia, unspecified; I10 Essential (primary) hypertension; E78.5 Hyperlipidemia, unspecified; E03.9 Hypothyroidism, unspecified; I25.10 Atherosclerotic heart disease of native coronary artery without angina pectoris; D72.829 Elevated white blood cell count, unspecified; Z79.01 Long term (current) use of anticoagulants; Z79.899 Other long term (current) drug therapy
CPT/HCPCS: 0241U; 36000; 36415; 41899; 71045; 71250; 74021; 74176; 80053; 81001; 82947; 83036; 83690; 83735; 84132; 84484; 85025; 87040; 87493; 87641; 93005; 94760; 96365; 96374; 99285; J1650; J2270; J2405; J3010; Q3014; A9270-GY